=== PATIENT | female | born 1995 | race Caucasian/White ===

== ENCOUNTER 2016-04-16 03:41 | Emergency (ER) | payer SELFPAY ==
[2016-04-16] MEDS ORDERED: ONDANSETRON HCL INJ/PF 4 MG/2 ML SDV IV ONE (04:48)
[2016-04-16] MEDS ORDERED: NORMAL SALINE 1000 ML 1,000 ML IV ONE (04:48)
--- NOTE | 2016-04-16 04:52 | ER Document Report ---
ED GI/ - General Chief Complaint: Nausea/Vomiting/Diarrhea Stated Complaint: CHEST PAIN Time seen by provider: 04:40 Notes: Patient is a 21-year-old female that comes emergency department for chief complaint of vomiting and diarrhea since yesterday, she has vomited 6 times today and had 3 episodes of diarrhea, she denies blood in either. Patient states that she has pain in the pelvis or abdomen that is sharp. Patient does have suspected sick contacts with her significant other and his family members. Patient also states that for several days she has had pain with urination. Patient denies any raw food or recent antibiotics. Patient denies any daily medications, past medical history of anxiety. Patient denies any surgeries. TRAVEL OUTSIDE OF THE [place] IN LAST 30 DAYS: No - Related Data Allergies/Adverse Reactions: lorazepam [From Ativan] Allergy (Verified 07/17/14 11:47) Past Medical History - General Information source: Patient - Social History Smoking Status: Current Every Day Smoker Chew tobacco use (# tins/day): No Frequency of alcohol use: None Drug Abuse: Marijuana Lives with: Family Family History: Reviewed & Not Pertinent Patient has suicidal ideation: No Patient has homicidal ideation: No Renal/ Medical History: Denies: Hx Peritoneal Dialysis Psychiatric Medical History: Reports: Hx Anxiety Surgical Hx: Negative - Immunizations Hx Diphtheria, Pertussis, Tetanus Vaccination: Yes Review of Systems - Review of Systems Constitutional: No symptoms reported EENT: No symptoms reported Cardiovascular: No symptoms reported Respiratory: No symptoms reported Gastrointestinal: See HPI Genitourinary: No symptoms reported Female Genitourinary: No symptoms reported Musculoskeletal: No symptoms reported Skin: No symptoms reported Hematologic/Lymphatic: No symptoms reported Neurological/Psychological: No symptoms reported Physical Exam - Vital signs Vitals: Temp Pulse Resp BP Pulse Ox 98.1 F 88 16 129/81 H 98 04/16/16 03:57 04/16/16 03:57 04/16/16 03:57 04/16/16 03:57 04/16/16 03:57 Interpretation: Normal - General General appearance: Appears well, Alert In distress: None - HEENT Head: Normocephalic, Atraumatic Eyes: Normal Conjunctiva: Normal Extraocular movements intact: Yes Eyelashes: Normal Pupils: PERRL Mouth/Lips: Normal Mucous membranes: Dry Pharynx: Normal Neck: Normal - Respiratory Respiratory status: No respiratory distress Chest status: Nontender Breath sounds: Normal Chest palpation: Normal - Cardiovascular Rhythm: Regular Heart sounds: Normal auscultation Murmur: No - Abdominal Inspection: Normal Distension: No distension Bowel sounds: Normal Tenderness: Tender - Mild left upper quadrant tenderness, otherwise unremarkable abdomen Organomegaly: No organomegaly - Back Back: Normal, Nontender - Extremities General upper extremity: Normal inspection, Nontender, Normal color, Normal ROM , Normal temperature General lower extremity: Normal inspection, Nontender, Normal color, Normal ROM , Normal temperature, Normal weight bearing. No: Padilla's sign - Neurological Neuro grossly intact: Yes Cognition: Normal Orientation: AAOx4 Shirlene Coma Scale Eye Opening: Spontaneous Acworth Coma Scale Verbal: Oriented Shirlene Coma Scale Motor: Obeys Commands Acworth Coma Scale Total: 15 Speech: Normal Motor strength normal: LUE, RUE, LLE, RLE Sensory: Normal - Psychological Associated symptoms: Normal affect, Normal mood - Skin Skin Temperature: Warm Skin Moisture: Dry Skin Color: Normal Course - Re-evaluation Re-evalutation: Shows very mild leukocytosis, chemistry shows slightly low bicarbonate, urine shows ketones, clinical picture is consistent with vomiting and dehydration. Mild left upper quadrant tenderness on exam, after Zofran patient denying any symptoms, patient drink fluids without any difficulty, patient has multiple sick contacts, suspect patient has a viral syndrome. Discussed treatment, follow-up, return precautions. Patient states understanding and agreement. - Vital Signs Vital signs: Temp Pulse Resp BP Pulse Ox 99.0 F 98 16 125/65 100 04/16/16 06:53 04/16/16 06:53 04/16/16 06:53 04/16/16 06:53 04/16/16 06:53 - Laboratory Result Diagrams: 04/16/16 04:57 04/16/16 04:57 Laboratory results interpreted by me: 04/16/16 04/16/16 04/16/16 04:57 04:57 05:00 WBC 12.1 H Seg Neutrophils % 80.9 H Lymphocytes % 10.8 L Absolute Neutrophils 9.8 H Carbon Dioxide 19 L Total Protein 8.4 H Urine Ketones 80 H Urine Blood SMALL H Discharge - Discharge Clinical Impression: Nausea vomiting and diarrhea Condition: Stable Disposition: HOME, SELF-CARE Additional Instructions: Continue rehydration, take Phenergan or the Zofran for nausea. Benadryl can help with nausea as well. Take the Pepcid as directed to help settle your stomach. Start with plain foods, rest. Workup and examination is most consistent with a viral syndrome. Return to emergency department for any concerning or worsening symptoms. Prescriptions: Famotidine [Pepcid 20 mg Tablet] 20 mg PO DAILY #20 tablet Promethazine HCl [Phenergan 25 mg Tablet] 1 - 2 tab PO Q6H PRN #20 tablet PRN Reason: Forms: Return to Work
[2016-04-16 05:25] LABS: ABSOLUTE LYMPHOCYTES (AUTO) 1.3 10^3/uL (0.5-4.7); ABSOLUTE MONOCYTES (AUTO) 0.9 10^3/uL (0.1-1.4); ABSOLUTE NEUT (AUTO) 9.8 10^3/uL (1.7-8.2); BASOPHILS % (AUTO) 0.3 % (0-2); EOSINOPHILS % (AUTO) 0.2 % (0-6); HEMATOCRIT 43.6 % (36.0-47.0); HEMOGLOBIN 14.6 g/dL (12.0-15.5); HGB HCT DIFFERENCE 0.2; LYMPHOCYTES % (AUTO) 10.8 % (13-45); MEAN CORPUSCULAR HEMOGLOBIN 30.7 pg (27.0-33.4); MEAN CORPUSCULAR HGB CONC 33.5 g/dL (32.0-36.0); MEAN CORPUSCULAR VOLUME 92 fl (80-97); MONOCYTES % (AUTO) 7.8 % (3-13); RED BLOOD COUNT 4.75 10^6/uL (3.72-5.28); RED CELL DISTRIBUTION WIDTH 13.2 % (11.5-14.0); SEGMENTED NEUTROPHILS % (AUTO) 80.9 % (42-78); WHITE BLOOD COUNT 12.1 10^3/uL (4.0-10.5)
[2016-04-16 05:42] LABS: ALANINE AMINOTRANSFERASE 29 U/L (9-52); ALBUMIN 4.6 g/dL (3.5-5.0); ALKALINE PHOSPHATASE 68 U/L (38-126); ANION GAP 18 (5-19); ASPARTATE AMINO TRANSFERASE 22 U/L (14-36); BILIRUBIN,TOTAL 0.8 mg/dL (0.2-1.3); BLOOD UREA NITROGEN 11 mg/dL (7-20); CALCIUM 10.2 mg/dL (8.4-10.2); CARBON DIOXIDE 19 mmol/L (22-30); CHLORIDE 103 mmol/L (98-107); CREATININE RESULT 0.61 mg/dL (0.52-1.25); GLUCOSE 76 mg/dL (75-110); LIPASE 44.7 U/L (23-300); POTASSIUM 4.6 mmol/L (3.6-5.0); SODIUM 140.4 mmol/L (137-145); TOTAL PROTEIN 8.4 g/dL (6.3-8.2)
[2016-04-16 05:46] LABS: APPEARANCE,URINE CLEAR; BILIRUBIN,URINE NEGATIVE (NEGATIVE); GLUCOSE, URINE NEGATIVE (NEGATIVE); KETONES,URINE 80 mg/dL (NEGATIVE); LEUKOCYTE ESTERASE,URINE NEGATIVE (NEGATIVE); NITRITE,URINE NEGATIVE (NEGATIVE); PROTEIN,URINE NEGATIVE (NEGATIVE); URINE SPECIFIC GRAVITY 1.011; UROBILINOGEN,URINE NEGATIVE mg/dL (<2.0)
[2016-04-16] MEDS ORDERED: ONDANSETRON ODT 4 MG TAB (6 TAB/DSPK) PO PRN (06:08)
[2016-04-16 06:54] VITALS: BP 125/65
== END 2016-04-16 06:54 | disposition home or self-care (01) ==
LOC: ER 03:41
DX: R11.2 Nausea with vomiting, unspecified (principal); R19.7 Diarrhea, unspecified; F17.210 Nicotine dependence, cigarettes, uncomplicated
CPT/HCPCS: 99284; 96361; 96374; 36415; 83690; 85025; 81025; 80053; 81001; J2405; J7030

== ENCOUNTER 2016-07-05 10:52 | Emergency (ER) | payer SELFPAY ==
[2016-07-05] MEDS ORDERED: HYDROXYZINE PAMOATE 50 MG CAPSULE PO ONE (12:13)
--- NOTE | 2016-07-05 12:16 | ER Document Report ---
ED Medical Screen (RME) - General Chief Complaint: Anxiety Stated Complaint: HAND AND ARM NUMBNESS Notes: Patient says that she awakened this morning at 8 AM and was having chest pains. Soon, her arms and legs and face were tingling. Now, she has cramping of both hands and wrists. Says she has vomited about 8 times. Denies diarrhea. No recent cough or cold or chest congestion. No fevers. Patient says that she went to a [place] last night and was drinking alcohol, but doesn't feel that she became significantly intoxicated. LMP started 2 days ago. PMH: Panic attacks and anxiety. TRAVEL OUTSIDE OF THE [place] IN LAST 30 DAYS: No - Related Data Allergies/Adverse Reactions: lorazepam [From Ativan] Allergy (Verified 07/17/14 11:47) Past Medical History Renal/ Medical History: Denies: Hx Peritoneal Dialysis Psychiatric Medical History: Reports: Hx Anxiety - Immunizations Hx Diphtheria, Pertussis, Tetanus Vaccination: Yes Physical Exam - Vital signs Vitals: Temp Pulse Resp BP Pulse Ox 97.6 F 79 16 132/83 H 98 07/05/16 10:57 07/05/16 10:57 07/05/16 10:57 07/05/16 10:57 07/05/16 10:57 Course - Vital Signs Vital signs: Temp Pulse Resp BP Pulse Ox 97.6 F 79 16 132/83 H 98 07/05/16 10:57 07/05/16 10:57 07/05/16 10:57 07/05/16 10:57 07/05/16 10:57 Doctor's Discharge - Discharge Instructions: Anxiety ([facility])
[2016-07-05 12:39] LABS: ABSOLUTE BASOPHILS # (AUTO) 0.1 10^3/uL (0.0-0.2); ABSOLUTE LYMPHOCYTES (AUTO) 1.1 10^3/uL (0.5-4.7); ABSOLUTE MONOCYTES (AUTO) 0.7 10^3/uL (0.1-1.4); BASOPHILS % (AUTO) 0.4 % (0-2); EOSINOPHILS % (AUTO) 0.1 % (0-6); HEMATOCRIT 43.8 % (36.0-47.0); HEMOGLOBIN 14.7 g/dL (12.0-15.5); HGB HCT DIFFERENCE 0.3; LYMPHOCYTES % (AUTO) 7.7 % (13-45); MEAN CORPUSCULAR HEMOGLOBIN 30.7 pg (27.0-33.4); MEAN CORPUSCULAR HGB CONC 33.5 g/dL (32.0-36.0); MEAN CORPUSCULAR VOLUME 92 fl (80-97); MONOCYTES % (AUTO) 4.9 % (3-13); RED BLOOD COUNT 4.78 10^6/uL (3.72-5.28); RED CELL DISTRIBUTION WIDTH 13.1 % (11.5-14.0); SEGMENTED NEUTROPHILS % (AUTO) 86.9 % (42-78); WHITE BLOOD COUNT 13.8 10^3/uL (4.0-10.5)
[2016-07-05 12:49] LABS: AMORPHOUS SEDIMENT,URINE TRACE /HPF; APPEARANCE,URINE TURBID; BILIRUBIN,URINE NEGATIVE (NEGATIVE); GLUCOSE, URINE NEGATIVE (NEGATIVE); KETONES,URINE NEGATIVE (NEGATIVE); LEUKOCYTE ESTERASE,URINE NEGATIVE (NEGATIVE); NITRITE,URINE NEGATIVE (NEGATIVE); PROTEIN,URINE 30 mg/dL (NEGATIVE); URINE SPECIFIC GRAVITY 1.025; UROBILINOGEN,URINE NEGATIVE mg/dL (<2.0)
[2016-07-05 12:56] LABS: ALANINE AMINOTRANSFERASE 21 U/L (9-52); ALBUMIN 5.1 g/dL (3.5-5.0); ALKALINE PHOSPHATASE 61 U/L (38-126); ANION GAP 18 (5-19); ASPARTATE AMINO TRANSFERASE 19 U/L (14-36); BILIRUBIN,DIRECT 0.3 mg/dL (0.0-0.4); BILIRUBIN,TOTAL 0.6 mg/dL (0.2-1.3); BLOOD UREA NITROGEN 11 mg/dL (7-20); CALCIUM 10.2 mg/dL (8.4-10.2); CARBON DIOXIDE 23 mmol/L (22-30); CHLORIDE 107 mmol/L (98-107); CREATININE RESULT 0.66 mg/dL (0.52-1.25); GLUCOSE 111 mg/dL (75-110); LIPASE 60.5 U/L (23-300); POTASSIUM 4.2 mmol/L (3.6-5.0); SODIUM 148.2 mmol/L (137-145); TOTAL PROTEIN 8.6 g/dL (6.3-8.2)
--- NOTE | 2016-07-05 13:32 | ER Document Report ---
ED General - General Chief Complaint: Anxiety Stated Complaint: HAND AND ARM NUMBNESS Mode of Arrival: Ambulatory Information source: Patient Notes: Patient presents emergency department with complaints of chest pain hand cramps hard debris and panic attack. Patient reports that she went to a [place] last night and drank for apple [employer]. Patient reports she woke up this morning with these symptoms. She reports history of anxiety. She reports that since she's been here she's vomited at least 5 more times. She reports she's had diarrhea once. She reports middle of her chest hurts. TRAVEL OUTSIDE OF THE [place] IN LAST 30 DAYS: No - HPI Onset: Just prior to arrival Onset/Duration: Sudden Severity: Severe Pain Level: 5 Associated symptoms: Diarrhea, Nausea, Vomiting Exacerbated by: Denies Relieved by: Denies Similar symptoms previously: Yes Recently seen / treated by doctor: No - Related Data Allergies/Adverse Reactions: lorazepam [From Ativan] Allergy (Verified 07/17/14 11:47) Past Medical History - General Information source: Patient Last Menstrual Period: current - Social History Smoking Status: Current Every Day Smoker Cigarette use (# per day): Yes Frequency of alcohol use: Occasional Drug Abuse: Marijuana Occupation: none Lives with: Family Family History: Reviewed & Not Pertinent Patient has suicidal ideation: No Patient has homicidal ideation: No Renal/ Medical History: Denies: Hx Peritoneal Dialysis Psychiatric Medical History: Reports: Hx Anxiety, Other - panic attacks Surgical Hx: Negative - Immunizations Hx Diphtheria, Pertussis, Tetanus Vaccination: Yes Review of Systems - Review of Systems Notes: Review HPI for review of systems., All other systems negative Physical Exam - Vital signs Vitals: Temp Pulse Resp BP Pulse Ox 97.6 F 79 16 132/83 H 98 07/05/16 10:57 07/05/16 10:57 07/05/16 10:57 07/05/16 10:57 07/05/16 10:57 - Notes Notes: PHYSICAL EXAMINATION: GENERAL: Well-appearing and in no acute distress nontoxic looking, laughs at her easily HEAD: Atraumatic, normocephalic. EYES: Pupils equal round extraocular movements intact, sclera anicteric, conjunctiva are normal. ENT: nares patent, oropharynx clear without exudates. Moist mucous membranes. NECK: Normal range of motion, supple without lymphadenopathy LUNGS: CTAB and equal. No wheezes rales or rhonchi. HEART: Regular rate and rhythm without murmurs ABDOMEN: Soft, no tenderness. No guarding, no rebound BACK: No c/o pain with palpation EXTREMITIES: Normal range of motion, no pitting edema. No cyanosis. Reports shoulders achy NEUROLOGICAL: Cranial nerves grossly intact. Normal sensory/motor exams. PSYCH: Normal mood, normal affect. SKIN: Warm, Dry, normal turgor, no rashes or lesions noted Course - Re-evaluation Re-evalutation: 07/05/16 15:33 Called into patients room, she vomited again. She has not received her medication. I contacted another nurse and requested she give medication 07/05/16 16:29 Labs unremarkable Patient received IV fluids reports she feels much better. - Vital Signs Vital signs: Temp Pulse Resp BP Pulse Ox 98.6 F 81 16 132/89 H 98 07/05/16 16:54 07/05/16 16:54 07/05/16 16:54 07/05/16 16:54 07/05/16 16:54 - Laboratory Result Diagrams: 07/05/16 12:20 07/05/16 12:20 Laboratory results interpreted by me: 07/05/16 07/05/16 07/05/16 12:20 12:20 12:20 WBC 13.8 H Seg Neutrophils % 86.9 H Lymphocytes % 7.7 L Absolute Neutrophils 12.0 H Sodium 148.2 H Glucose 111 H Total Protein 8.6 H Albumin 5.1 H Urine Protein 30 H Urine Blood MODERATE H - EKG Interpretation by Id EKG shows normal: Sinus rhythm Discharge - Discharge Clinical Impression: Nausea & vomiting, History of panic attacks, Elevated blood pressure reading Condition: Stable Disposition: HOME, SELF-CARE Instructions: Antinausea Medication ([facility]), Anxiety ([facility]), Vomiting ([facility]), Intravenous (IV) Fluids ([facility]) Additional Instructions: *You have been evaluated for nausea/vomiting, history of panic attacks *Take medication as prescribed for nausea *Over the counter anti-diarrheal as indicated *Ensure adequate fluid intake as discussed to prevent dehydration *Follow up with a primary care provider within one week *Return to ED for worsening condition, changes, needs Monitor your blood pressure. Your blood pressure was elevated today. This may be because you were anxious, in pain or because you need medication. It is important to follow up with your primary care provider for full evaluation. Forms: Return to Work, Elevated Blood Pressure
[2016-07-05] MEDS ORDERED: ONDANSETRON 4 MG TAB.RAPDIS PO ONE (14:27)
[2016-07-05] MEDS ORDERED: DIPHENHYDRAMINE HCL 25 MG CAPSULE PO ONE (14:27)
[2016-07-05] MEDS ORDERED: RINGERS SOLUTION,LACTATED 1,000 ML IV ONE (15:34)
[2016-07-05 16:24] LABS: URINE BARBITURATES SCREEN NEGATIVE; URINE METHADONE SCREEN NEGATIVE; URINE OPIATES LOW NEGATIVE; URINE PHENCYCLIDINE SCREEN NEGATIVE
[2016-07-05] MEDS ORDERED: ONDANSETRON ODT 4 MG TAB (6 TAB/DSPK) PO PRN (16:29)
[2016-07-05 17:41] VITALS: BP 132/89
--- NOTE | 2016-07-06 16:55 | EKG REPORT ---
SEVERITY:- NORMAL ECG - SINUS RHYTHM : Confirmed by: Maryann Torres MD 06-Jul-2016 16:54:14
== END 2016-07-05 16:55 | disposition home or self-care (01) ==
LOC: ER 10:52
DX: R07.9 Chest pain, unspecified (principal); R03.0 Elevated blood-pressure reading, without diagnosis of hypertension; R11.2 Nausea with vomiting, unspecified; F41.9 Anxiety disorder, unspecified; F17.210 Nicotine dependence, cigarettes, uncomplicated
CPT/HCPCS: 93005; 99284; 96360; 36415; 83690; 84703; 85025; 80053; 81001; 80307; 93010; S0119; J7120

== ENCOUNTER 2016-09-27 07:15 | Emergency (ER) | payer SELFPAY ==
[2016-09-27] MEDS ORDERED: DIPHENHYDRAMINE HCL 50 MG/ML VIAL IM ONE (07:55)
[2016-09-27] MEDS ORDERED: MAG HYDROX/AL HYDROX/SIMETH SUSP 30 ML UDCUP PO ONE (07:56)
[2016-09-27] MEDS ORDERED: LIDOCAINE 2% VISCOUS SOLN 20 ML UDCUP PO ONE (07:56)
--- NOTE | 2016-09-27 08:53 | ER Document Report ---
ED General - General Mode of Arrival: Medic Information source: Patient TRAVEL OUTSIDE OF THE [place] IN LAST 30 DAYS: No - HPI Onset: This morning - Refer to HPI notes Similar symptoms previously: Yes Recently seen / treated by doctor: No <ADELITA BACA - Last Filed: 09/27/16 09:01> <SHONA MARX - Last Filed: 09/27/16 13:15> - General Chief Complaint: Anxiety Stated Complaint: ANXIETY Time Seen by Provider: 09/27/16 07:32 Notes: Patient is a 21-year-old female presented emergency department via EMS anxiety. Patient became anxious around 130 this morning and took 4 shots of alcohol. Patient states around 10:00 this morning she laid down to try to go to sleep. Patient states that this time she became very anxious and felt like the room is spinning and she has vomited at home and currently in the emergency department patient also complains of some tingling in her hands and face. Patient's last menstrual period was 09/03/2016. Patient smokes marijuana daily. Patient has not eaten any food before she took 4 shots of alcohol; Patient states she took all of this alcohol the same time. (ADELITA BACA) - Related Data Allergies/Adverse Reactions: lorazepam [From Ativan] Allergy (Verified 07/17/14 11:47) Past Medical History - General Information source: Patient - Social History Smoking Status: Current Every Day Smoker Chew tobacco use (# tins/day): No Frequency of alcohol use: Social Drug Abuse: Marijuana Family History: None Patient has suicidal ideation: No Patient has homicidal ideation: No Psychiatric Medical History: Reports: Hx Anxiety, Hx Depression Surgical Hx: Negative - Immunizations Hx Diphtheria, Pertussis, Tetanus Vaccination: Yes <ADELITA BACA - Last Filed: 09/27/16 09:01> Review of Systems - Review of Systems Constitutional: No symptoms reported EENT: No symptoms reported Cardiovascular: No symptoms reported Respiratory: No symptoms reported Gastrointestinal: See HPI, Abdominal pain, Nausea, Vomiting Genitourinary: No symptoms reported Female Genitourinary: Last menstrual period - 09/03/2016 Musculoskeletal: No symptoms reported Skin: No symptoms reported Hematologic/Lymphatic: No symptoms reported Neurological/Psychological: See HPI, Anxiety -: Yes All other systems reviewed and negative <ADELITA BACA - Last Filed: 09/27/16 09:01> Physical Exam - Vital signs Interpretation: Normal <ADELITA BACA - Last Filed: 09/27/16 09:01> <SHONA MARX - Last Filed: 09/27/16 13:15> - Vital signs Vitals: Temp Pulse Resp BP Pulse Ox 98.5 F 78 18 109/63 97 09/27/16 07:33 09/27/16 07:33 09/27/16 07:33 09/27/16 07:33 09/27/16 07:33 - Notes Notes: GENERAL: Alert, patient is sitting on the bed holding a emesis bag and spitting is not, mild distress. HEAD: Normocephalic, atraumatic. EYES: Appear normal. Pupils equal, round, and reactive to light. ENT: Moist mucus membranes, tongue midline. NECK: Full range of motion. Supple. Trachea midline. LUNGS: Clear to auscultation bilaterally, no wheezes, rales, or rhonchi. No respiratory distress. HEART: Regular rate and rhythm. No murmurs, gallops, or rubs. ABDOMEN: Soft, non-tender. Non-distended. Normal bowel sounds. EXTREMITIES: Moves all 4 extremities spontaneously. Normal strength. No edema. NEUROLOGICAL: Alert and oriented x3. Normal speech. No focal neurological deficits. GSC 15. PSYCH: Normal affect, anxious. SKIN: Warm, dry, normal turgor. No rashes or lesions noted. (ADELITA BACA) Course <NEEMA BACAINE - Last Filed: 09/27/16 09:01> - Laboratory Result Diagrams: 09/27/16 09:15 <SHONA MARX - Last Filed: 09/27/16 13:15> - Re-evaluation Re-evalutation: 09/27/16 13:14 The patient is feeling much better at this time. She sitting up and smiling. She states she does feel well and would like to go home. (SHONA MARX) - Vital Signs Vital signs: Temp Pulse Resp BP Pulse Ox 98.0 F 105 H 16 115/63 99 09/27/16 11:44 09/27/16 11:44 09/27/16 11:44 09/27/16 11:44 09/27/16 11:44 - Laboratory Laboratory results interpreted by me: 09/27/16 09:15 WBC 13.9 H Seg Neutrophils % 84.1 H Lymphocytes % 11.0 L Absolute Neutrophils 11.7 H Discharge <ADELITA BACA - Last Filed: 09/27/16 09:01> <SHONA MARX - Last Filed: 09/27/16 13:15> - Discharge Clinical Impression: Anxiety Nausea and vomiting Qualifiers: Vomiting type: unspecified Vomiting Intractability: non-intractable Qualified Code(s): R11.2 - Nausea with vomiting, unspecified Condition: Stable Disposition: HOME, SELF-CARE Instructions: Anxiety ([facility]) Additional Instructions: Gastritis You have an inflammation of the stomach called gastritis. This commonly causes upper abdominal pain, nausea, and vomiting. In severe cases, bleeding of the stomach lining can occur. Gastritis can be caused by bacteria or viruses , alcohol, or stomach-irritating drugs. Begin with sips of clear liquids. Take increasing amounts of fluid over the first 24 hours. Then start small amounts of bland foods (such as dry toast , applesauce, mashed potato). Gradually resume your usual diet. You should take antacids every two hours until the pain has subsided. Acid -suppressing drugs may be prescribed as well. Avoid aspirin, caffeine, tobacco , and alcohol. If the abdominal pain worsens, or there is evidence of major bleeding in the stomach (such as black, tarry stool, bloody or black vomit, or lightheadedness), you should return immediately. Call the doctor if you aren't improved in 24 to 36 hours. RETURN TO THE EMERGENCY ROOM IF ANY NEW OR WORSENING SYMPTOMS. Scribe Attestation: 09/27/16 13:14 I personally performed the services described in the documentation, reviewed and edited the documentation which was dictated to the scribe in my presence, and it accurately records my words and actions. (SHONA MARX) Scribe Documentation - Scribe Written by Roberto:: Roberto Guadarrama, 09/27/2016 9:00 acting as scribe for :: Jhonathan <ADELITA BACA - Last Filed: 09/27/16 09:01>
[2016-09-27 09:42] LABS: ABSOLUTE BASOPHILS # (AUTO) 0.1 10^3/uL (0.0-0.2); ABSOLUTE LYMPHOCYTES (AUTO) 1.5 10^3/uL (0.5-4.7); ABSOLUTE MONOCYTES (AUTO) 0.6 10^3/uL (0.1-1.4); ABSOLUTE NEUT (AUTO) 11.7 10^3/uL (1.7-8.2); BASOPHILS % (AUTO) 0.5 % (0-2); HEMATOCRIT 43.6 % (36.0-47.0); HEMOGLOBIN 14.6 g/dL (12.0-15.5); HGB HCT DIFFERENCE 0.2; MEAN CORPUSCULAR HEMOGLOBIN 30.2 pg (27.0-33.4); MEAN CORPUSCULAR HGB CONC 33.5 g/dL (32.0-36.0); MEAN CORPUSCULAR VOLUME 90 fl (80-97); MONOCYTES % (AUTO) 4.4 % (3-13); RED BLOOD COUNT 4.85 10^6/uL (3.72-5.28); RED CELL DISTRIBUTION WIDTH 12.6 % (11.5-14.0); SEGMENTED NEUTROPHILS % (AUTO) 84.1 % (42-78); WHITE BLOOD COUNT 13.9 10^3/uL (4.0-10.5)
[2016-09-27] MEDS ORDERED: ONDANSETRON 4 MG TAB.RAPDIS PO ONE (10:55)
[2016-09-27 13:55] VITALS: BP 124/76
== END 2016-09-27 13:40 | disposition home or self-care (01) ==
LOC: ER 07:15
DX: F41.9 Anxiety disorder, unspecified (principal); R11.2 Nausea with vomiting, unspecified; R10.9 Unspecified abdominal pain; R20.2 Paresthesia of skin; F17.200 Nicotine dependence, unspecified, uncomplicated; Z88.8 Allergy status to other drugs, medicaments and biological substances
CPT/HCPCS: 99284; 96374; 36415; 80307; 84703; 85025; J1200; S0119; J3490

== ENCOUNTER 2017-01-04 12:09 | Emergency (ER) | payer SELFPAY ==
[2017-01-04] MEDS ORDERED: ONDANSETRON 4 MG TAB.RAPDIS PO ONE (12:18)
--- NOTE | 2017-01-04 12:19 | ER Document Report ---
ED Medical Screen (RME) - General Chief Complaint: Abdominal Pain Stated Complaint: HANDS/FEET/FACE NUMBNESS Time Seen by Provider: 01/04/17 12:15 Notes: This 21-year-old female patient reports waking up this morning with a burning sensation and cold sensation in her lower abdomen. The pain is primarily in the right lower quadrant. She did have nausea and vomiting. This caused her to feel anxious and developed a panic attack. Brief exam shows the abdomen is most tender in the right lower quadrant with some guarding. I have greeted and performed a rapid initial assessment of this patient. A comprehensive ED assessment and evaluation of the patient, analysis of test results and completion of the medical decision making process will be conducted by additional ED providers. TRAVEL OUTSIDE OF THE [place] IN LAST 30 DAYS: No - Related Data Allergies/Adverse Reactions: lorazepam [From Ativan] Allergy (Verified 01/04/17 12:12) Past Medical History Renal/ Medical History: Denies: Hx Peritoneal Dialysis Psychiatric Medical History: Reports: Hx Anxiety, Hx Depression - Immunizations Hx Diphtheria, Pertussis, Tetanus Vaccination: Yes Physical Exam - Vital signs Vitals: Temp Pulse Resp BP Pulse Ox 97.9 F 82 18 119/83 96 01/04/17 12:13 01/04/17 12:13 01/04/17 12:13 01/04/17 12:13 01/04/17 12:13 Course - Vital Signs Vital signs: Temp Pulse Resp BP Pulse Ox 97.9 F 82 18 119/83 96 01/04/17 12:13 01/04/17 12:13 01/04/17 12:13 01/04/17 12:13 01/04/17 12:13
[2017-01-04 12:53] LABS: ABSOLUTE EOSINOPHILS # (AUTO) 0.1 10^3/uL (0.0-0.6); ABSOLUTE LYMPHOCYTES (AUTO) 1.8 10^3/uL (0.5-4.7); ABSOLUTE MONOCYTES (AUTO) 0.7 10^3/uL (0.1-1.4); ABSOLUTE NEUT (AUTO) 7.5 10^3/uL (1.7-8.2); BASOPHILS % (AUTO) 0.5 % (0-2); EOSINOPHILS % (AUTO) 0.8 % (0-6); HEMATOCRIT 44.3 % (36.0-47.0); HEMOGLOBIN 15.2 g/dL (12.0-15.5); HGB HCT DIFFERENCE 1.3; LYMPHOCYTES % (AUTO) 17.9 % (13-45); MEAN CORPUSCULAR HEMOGLOBIN 31.6 pg (27.0-33.4); MEAN CORPUSCULAR HGB CONC 34.2 g/dL (32.0-36.0); MEAN CORPUSCULAR VOLUME 92 fl (80-97); MONOCYTES % (AUTO) 7.2 % (3-13); RED CELL DISTRIBUTION WIDTH 13.4 % (11.5-14.0); SEGMENTED NEUTROPHILS % (AUTO) 73.6 % (42-78); WHITE BLOOD COUNT 10.2 10^3/uL (4.0-10.5)
[2017-01-04 12:54] LABS: APPEARANCE,URINE CLOUDY; BILIRUBIN,URINE NEGATIVE (NEGATIVE); GLUCOSE, URINE NEGATIVE (NEGATIVE); KETONES,URINE TRACE mg/dL (NEGATIVE); LEUKOCYTE ESTERASE,URINE NEGATIVE (NEGATIVE); NITRITE,URINE NEGATIVE (NEGATIVE); PROTEIN,URINE NEGATIVE (NEGATIVE); URINE SPECIFIC GRAVITY 1.008
[2017-01-04 13:09] LABS: ALANINE AMINOTRANSFERASE 26 U/L (9-52); ALBUMIN 4.8 g/dL (3.5-5.0); ALKALINE PHOSPHATASE 60 U/L (38-126); ANION GAP 17 (5-19); ASPARTATE AMINO TRANSFERASE 19 U/L (14-36); BILIRUBIN,DIRECT 0.2 mg/dL (0.0-0.4); BILIRUBIN,TOTAL 0.3 mg/dL (0.2-1.3); BLOOD UREA NITROGEN 8 mg/dL (7-20); CALCIUM 9.9 mg/dL (8.4-10.2); CARBON DIOXIDE 25 mmol/L (22-30); CHLORIDE 103 mmol/L (98-107); CREATININE RESULT 0.67 mg/dL (0.52-1.25); GLUCOSE 102 mg/dL (75-110); SODIUM 145.1 mmol/L (137-145); TOTAL PROTEIN 7.9 g/dL (6.3-8.2)
[2017-01-04 13:11] LABS: POTASSIUM 3.8 mmol/L (3.6-5.0)
[2017-01-04] MEDS ORDERED: ONDANSETRON HCL INJ/PF 4 MG/2 ML SDV IV ONE (13:25)
[2017-01-04] MEDS ORDERED: LIDOCAINE 2% VISCOUS SOLN 20 ML UDCUP PO ONE (13:35)
[2017-01-04] MEDS ORDERED: MAG HYDROX/AL HYDROX/SIMETH SUSP 30 ML UDCUP PO ONE (13:35)
[2017-01-04] MEDS ORDERED: METOCLOPRAMIDE HCL ORAL SOLN 10 MG/10 ML UDCUP PO ONE (13:35)
--- NOTE | 2017-01-04 13:49 | ER Document Report ---
ED GI/ - General Chief Complaint: Abdominal Pain Stated Complaint: HANDS/FEET/FACE NUMBNESS Time Seen by Provider: 01/04/17 12:15 Information source: Patient Notes: Patient is a 21-year-old female who presents today with "a hot and cold feeling " in her abdomen. She states it is bilateral lower quadrants. She states to me it is left greater than right. She stated in triage that was right greater than left. She denies any diarrhea, dysuria, or fevers. Patient states she recently had an appointment with the health department and had all STD checks and was given a prescription of Flagyl which he completed last week. She denies any vaginal discharge. She states she is and monogamous. Patient also states when she vomited she felt tingling to bilateral hands and feet. She denies any tingling at this time. TRAVEL OUTSIDE OF THE [place] IN LAST 30 DAYS: No - HPI Patient complains to provider of: Other - See above Onset: This morning Timing/Duration: Sudden Quality of pain: Achy Severity at maximum: Mild Severity in ED: Mild Pain Level: 1 Location: Other - See above Vaginal bleeding (Compared to normal period): None Sexual history: Active Associated symptoms: Other - See above Exacerbated by: Denies Relieved by: Denies Similar symptoms previously: No Recently seen / treated by doctor: No - Related Data Allergies/Adverse Reactions: lorazepam [From Ativan] Allergy (Verified 01/04/17 12:12) Past Medical History - General Information source: Patient - Social History Smoking Status: Current Every Day Smoker Cigarette use (# per day): No Chew tobacco use (# tins/day): No Smoking Education Provided: No Frequency of alcohol use: None Drug Abuse: None Family History: None Renal/ Medical History: Denies: Hx Peritoneal Dialysis Psychiatric Medical History: Reports: Hx Anxiety, Hx Depression Surgical Hx: Negative - Immunizations Hx Diphtheria, Pertussis, Tetanus Vaccination: Yes Review of Systems - Review of Systems Constitutional: denies: Fever EENT: denies: Eye discharge, Nose discharge Cardiovascular: denies: Chest pain, Palpitations Respiratory: denies: Short of breath Gastrointestinal: denies: Vomiting Genitourinary: denies: Dysuria, Discharge Musculoskeletal: denies: Leg swelling Skin: Other - no hives. denies: Rash Neurological/Psychological: Other - no slurred speech -: Yes All other systems reviewed and negative Physical Exam - Vital signs Vitals: Temp Pulse Resp BP Pulse Ox 97.9 F 82 18 119/83 96 01/04/17 12:13 01/04/17 12:13 01/04/17 12:13 01/04/17 12:13 01/04/17 12:13 Notes: Reviewed vital signs and nursing note as charted by RN. CONSTITUTIONAL: Alert and oriented and responds appropriately to questions. Well -appearing; well-nourished HEAD: Normocephalic; atraumatic EYES: Sclerae non-icteric ENT: Moist mucous membranes; pharynx without lesions noted NECK: Supple without meningismus; non-tender; no cervical lymphadenopathy, no masses CARD: Regular rate and rhythm; no murmurs RESP: Normal chest excursion without splinting or tachypnea; breath sounds clear and equal bilaterally ABD/GI: Normal bowel sounds; non-distended; soft, very mildly tender to bilateral lower quadrants, left greater than right. No rebound or guarding on my examination BACK: The back appears normal and is non-tender to palpation, there is no CVA tenderness EXT: Normal ROM in all joints; non-tender to palpation; no cyanosis, no effusions, no edema SKIN: Normal color for age and race; warm; dry; good turgor; capillary refill < 2 seconds; no acute lesions noted NEURO: Moves all extremities equally; Motor and sensory function intact PSYCH: The patient's mood and manner are appropriate. Grooming and personal hygiene are appropriate. Course - Re-evaluation Re-evalutation: 01/04/17 13:48 Given the above history and physical examination I will order basic labs, urinalysis, test, abdominal labs, and perform a CT scan of the abdomen and pelvis. Given the recent pelvic examination with STD testing with a monogamous partner in marriage, I do not believe pelvic examination needs to be repeated at this time. 01/04/17 13:[address] scan of the abdomen and pelvis has been ordered. 01/04/17 14:51 CT scan of the abdomen and pelvis as recorded. Patient has not vomited here. Patient has no tenderness on repeat examination. Patient will be discharged home at this time with strict return precautions and follow-up as needed with the outpatient provider. I will provide an HVAC R TECH for patient convenience. - Vital Signs Vital signs: Temp Pulse Resp BP Pulse Ox 97.9 F 82 18 119/83 96 01/04/17 12:13 01/04/17 12:13 01/04/17 12:13 01/04/17 12:13 01/04/17 12:13 - Laboratory Result Diagrams: 01/04/17 12:30 01/04/17 12:30 Laboratory results interpreted by me: 01/04/17 01/04/17 12:30 12:30 Sodium 145.1 H Urine Ketones TRACE H Urine Urobilinogen 2.0 H Discharge - Discharge Clinical Impression: Vomiting Qualifiers: Vomiting type: unspecified Vomiting Intractability: unspecified Nausea presence : with nausea Qualified Code(s): R11.2 - Nausea with vomiting, unspecified Abdominal pain Qualifiers: Abdominal location: lower abdomen, unspecified Qualified Code(s): R10.30 - Lower abdominal pain, unspecified Condition: Good Disposition: HOME, SELF-CARE Additional Instructions: Come back immediately for any return of pain, persistent vomiting, numbness or tingling, or any other acute problems. Please follow-up with the health department or the HVAC R TECH I have provided. Prescriptions: Ondansetron [Zofran Odt 4 mg Tablet] 1 tab PO Q6H #15 tab.renea Referrals: DELFINO DAILY MD [ACTIVE STAFF] - Follow up as needed
--- NOTE | 2017-01-04 14:32 | RADIOLOGY REPORT (SQ) ---
EXAM DESCRIPTION: CT ABD/PELVIS WITH IV ONLY COMPLETED DATE/TIME: 01/04/2017 2:18 pm REASON FOR STUDY: 13, bilateral lower abodminal pain with vomiting COMPARISON: CT abdomen pelvis 02/28/2015 TECHNIQUE: CT scan of the abdomen and pelvis performed using helical scanning technique with dynamic intravenous contrast injection. No oral contrast. Images reviewed with lung, soft tissue, and bone windows. Reconstructed coronal and sagittal MPR images reviewed. Delayed images for evaluation of the urinary system also acquired. All images stored on PACS. All CT scanners at this facility use dose modulation, iterative reconstruction, and/or weight based d osing when appropriate to reduce radiation dose to as low as reasonably achievable (ALARA). [facility]: Dose Right [facility]: CareDose [facility]: Dose Right [facility]: Teradose 4D [facility]: Pathagility CONTRAST TYPE AND DOSE: contrast/concentration: Isovue 370.00 mg/ml; Total Contrast Delivered: 61.0 ml; Total Saline Delivered: 65.0 ml RENAL FUNCTION: Creatinine 0.67 RADIATION DOSE: Up-to-date CT equipment and radiation dose reduction techniques were employed. CTDIv ol: 5.2 - 6.4 mGy. DLP: 575 mGy-cm.. LIMITATIONS: None. FINDINGS: LOWER CHEST: No significant findings. No nodules or infiltrates. LIVER: Normal size. No masses. No dilated ducts. SPLEEN: Normal size. No focal lesions. PANCREAS: No masses. No significant calcifications. No adjacent inflammation or peripancreatic fluid collections. Pancreatic duct not dilated. GALLBLADDER: No identified stones by CT criteria. No inflammatory changes to suggest cholecystitis. ADRENAL GLANDS: No significant masses or asymmetry. RIGHT KIDNEY AND URETER: No solid masses. No significant calcifications. No hydronephrosis or hyd roureter. LEFT KIDNEY AND URETER: No solid masses. No significant calcifications. No hydronephrosis or hydr oureter. AORTA AND VESSELS: No aneurysm. No dissection. Renal arteries, SMA, celiac without stenosis. RETROPERITONEUM: No retroperitoneal adenopathy, hemorrhage or masses. BOWEL AND PERITONEAL CAVITY: No masses or inflammatory changes. No free fluid or peritoneal masses. APPENDIX: Normal. PELVIS: No mass. No free fluid. Normal bladder. ABDOMINAL WALL: No masses. No hernias. BONES: No significant or acute findings. OTHER: No other significant finding. IMPRESSION: NO SIGNIFICANT OR ACUTE FINDING IN THE ABDOMEN OR PELVIS ON CT SCAN WITH IV CONTRAST. TECHNICAL DOCUMENTATION: JOB ID: [id number] Quality ID # [id number]: Final reports with documentation of one or more dose reduction techniques (e.g., Au tomated exposure control, adjustment of the mA and/or kV according to patient size, use of iterative reconstruction technique) 2010 [employer]- All Rights Reserved
[2017-01-04 15:45] VITALS: BP 114/75
== END 2017-01-04 15:28 | disposition home or self-care (01) ==
LOC: ER 12:09
DX: R10.30 Lower abdominal pain, unspecified (principal); R11.2 Nausea with vomiting, unspecified; F17.200 Nicotine dependence, unspecified, uncomplicated; Z88.8 Allergy status to other drugs, medicaments and biological substances
CPT/HCPCS: 99284; 96374; 36415; 84703; 85025; 80053; 81001; 74177; S0119; J3490; J2405

== ENCOUNTER 2017-11-25 03:40 | Emergency (ER) | payer SELFPAY ==
[2017-11-25] MEDS ORDERED: NORMAL SALINE 1000 ML 1,000 ML IV ONE (04:08)
[2017-11-25] MEDS ORDERED: DIPHENHYDRAMINE HCL 50 MG/ML VIAL IV ONE (04:09)
[2017-11-25] MEDS ORDERED: METOCLOPRAMIDE HCL INJ/PF 10 MG/2 ML SDV IV ONE (04:23)
--- NOTE | 2017-11-25 04:36 | ER Document Report ---
ED GI/ - General Chief Complaint: Anxiety Stated Complaint: ANXIETY Time Seen by Provider: 11/25/17 04:00 Mode of Arrival: Ambulatory Information source: Patient, Relative Notes: Patient is a 22-year-old female with a history of known anxiety disorder. She states that she woke up about an hour ago with vomiting chest pain discomfort back pain and shakiness all over. She also states it hurts to take a deep breath on her left rib area. She also mentions that she went to [facility] 4 days ago for same presentation she states they did not do an ultrasound and a urine and found she was approximately 2 weeks . They did a ultrasound transvaginally and could see a yolk sac and it was in the uterus in proper position but no heartbeat at that time. Patient also states this is her second and she miscarried the first time. Patient is hyperventilating and states that her hands and fingers are tingly her lips are not tingly and numb. Patient also states she has been vomiting since she woke up. She also tells me that [place] gave her something to relaxer and gave her some fluids and she got better and now she is getting worse again. She admits to smoking half pack a day. She denies any alcohol or narcotic use. TRAVEL OUTSIDE OF THE [place] IN LAST 30 DAYS: No - HPI Patient complains to provider of: , Vomiting. No: Urinary retention, Vaginal bleeding, Vaginal discharge, Vaginal pain Onset: Just prior to arrival Timing/Duration: Sudden Quality of pain: Achy Severity at maximum: Severe Severity in ED: Moderate Pain Level: 2 Context: Location: Chest pain, Low back. No: LUQ, LLQ, RUQ, RLQ, Pelvis, Vaginal, Vulvar , Rectal Adult Front & Back Diagram: 1 - Tender to palpation 2 - Tender to palpation intercostally and left axillary rib Vaginal bleeding (Compared to normal period): None Menstrual period history: Missed, : 2 Para: 0 Abortions: 1 OB ultrasound done: Yes vitamins taken: Yes Sexual history: Active Associated symptoms: Constipation, Hurts to breath, Vomiting. denies: Shortness of breath Exacerbated by: Denies Relieved by: Denies Similar symptoms previously: Yes Recently seen / treated by doctor: Yes - Related Data Allergies/Adverse Reactions: lorazepam [From Ativan] Allergy (Verified 01/04/17 12:12) Past Medical History - General Information source: Patient, Relative - Social History Smoking Status: Current Every Day Smoker Cigarette use (# per day): Yes Chew tobacco use (# tins/day): No Smoking Education Provided: Yes Frequency of alcohol use: Occasional Drug Abuse: None Lives with: Family Family History: None Patient has suicidal ideation: No Patient has homicidal ideation: No - Past Medical History Cardiac Medical History: Reports: None Pulmonary Medical History: Reports: None EENT Medical History: Reports: None Endocrine Medical History: Reports: None Renal/ Medical History: Reports: None. Denies: Hx Peritoneal Dialysis Malignancy Medical History: Reports: None GI Medical History: Reports: None Musculoskeletal Medical History: Reports None Skin Medical History: Reports None Psychiatric Medical History: Reports: Hx Anxiety, Hx Depression - anxiety - Immunizations Hx Diphtheria, Pertussis, Tetanus Vaccination: Yes Review of Systems - Review of Systems Constitutional: No symptoms reported EENT: No symptoms reported Cardiovascular: No symptoms reported Respiratory: No symptoms reported Gastrointestinal: Abdominal pain, Nausea Genitourinary: No symptoms reported Female Genitourinary: No symptoms reported Musculoskeletal: No symptoms reported Skin: No symptoms reported Hematologic/Lymphatic: No symptoms reported Neurological/Psychological: Anxiety Physical Exam - Vital signs Vitals: Temp Pulse Resp BP Pulse Ox 97.6 F 111 H 22 H 123/73 100 11/25/17 03:44 11/25/17 03:44 11/25/17 03:44 11/25/17 03:44 11/25/17 03:44 Interpretation: Tachycardic - Notes Notes: Patient is a 22-year-old female who appears anxious and hyperventilating while on exam. He also is actively dry heaving. She denies any current abdominal pain but still complains of having left sided rib pain with a deep breath and mid back pain. - General In distress: Mild - HEENT Head: Normocephalic, Atraumatic Eyes: Normal Conjunctiva: Normal Ears: Normal External canal: Normal Tympanic membrane: Normal Sinus: Normal Nasal: Normal Mouth/Lips: Normal Mucous membranes: Normal, Moist Pharynx: Normal Neck: Normal. No: Lymphadenopathy, Meningismus, Neck mass, Shotty nodes, Subcutaneous emphysema, Thyromegally - Respiratory Respiratory status: No respiratory distress Chest status: Nontender Breath sounds: Normal. No: Rales, Rhonchi, Stridor, Wheezing Chest palpation: Normal - Cardiovascular Rhythm: Tachycardia Heart sounds: Normal auscultation Murmur: No - Abdominal Inspection: Gravid female, Obese Distension: Distended Bowel sounds: Normal Tenderness: Tender, Other - Mild tenderness diffusely to percussion and palpation Organomegaly: No organomegaly - Back Back: Tender, Other - Examination of the back shows mild tenderness midthoracic down to the upper lumbar region. This is through palpation and movement. Patient has good straight leg raises bilaterally good DTRs in lower extremities bilaterally has some tenderness to palpation along the T12-L1 area to palpation. - Neurological Neuro grossly intact: Yes Cognition: Normal Orientation: AAOx4 Shirlene Coma Scale Eye Opening: Spontaneous [place] Coma Scale Verbal: Oriented Shirlene Coma Scale Motor: Obeys Commands Shirlene Coma Scale Total: 15 Speech: Normal - Psychological Associated symptoms: Anxious Course - Re-evaluation Re-evalutation: 11/25/17 07:13 Patient continued having nausea with vomiting. I have discussed with Dr. Velazco concerns for the possibility of a PE given patient smokes is then has had some left-sided chest discomfort with inhalation or deep breathing. We decided to run a d-dimer which turned out to be normal so therefore we do not have to for worry about PE at this time. I went back and reassess patient again her vomiting had calmed down after receiving the Phenergan IV and the 2 L of fluid. I gave her a fluid challenge after giving some Benadryl to her p.o. and patient is held down successfully per nursing. At this time feel patient main diagnosis is hyperemesis gravidarum and we will send her home on some Phenergan p.o. at this time. Also informed patient she can take Benadryl p.o. before she starts throwing up for nausea as well. I will give her the [employer] HELPER operations support professionals she currently is not seeing anyone. - Vital Signs Vital signs: Temp Pulse Resp BP Pulse Ox 97.6 F 111 H 22 H 123/73 100 11/25/17 03:44 09/12/18 03:44 11/25/17 03:44 11/25/17 03:44 11/25/17 03:44 - Laboratory Result Diagrams: 11/25/17 04:25 11/25/17 04:25 Laboratory results interpreted by me: 11/25/17 11/25/17 11/25/17 04:10 04:25 04:25 WBC 18.0 H Seg Neutrophils % 84.1 H Lymphocytes % 8.7 L Absolute Neutrophils 15.1 H BUN 6 L Calcium 10.4 H Total Protein 9.0 H Albumin 5.1 H Beta HCG, Quant 54572.00 H Urine Ketones 80 H Discharge - Discharge Clinical Impression: Hyperemesis gravidarum Condition: Stable Disposition: HOME, SELF-CARE Instructions: Anxiety ([facility]), Hyperemesis Gravidarum ([facility]) Additional Instructions: Home and rest. Continuously sipping fluids throughout the day. Medications self with the Benadryl prior to getting nauseous and vomiting starting. Also given you some Phenergan to go along with this. I am recommending to the OB/ CREATIVE ART THERAPIST that is operations support professionals today and that is Dr. Bridges.. Prescriptions: Promethazine HCl [Phenergan 25 mg Tablet] 1 tab PO Q6H PRN #15 tablet PRN Reason: Forms: Elevated Blood Pressure, Smoking Cessation Education Referrals: DELFINO BRIDGES MD [ACTIVE STAFF] - Follow up as needed
[2017-11-25 04:38] LABS: APPEARANCE,URINE CLEAR; BILIRUBIN,URINE NEGATIVE (NEGATIVE); COLOR,URINE YELLOW; GLUCOSE, URINE NEGATIVE (NEGATIVE); KETONES,URINE 80 mg/dL (NEGATIVE); LEUKOCYTE ESTERASE,URINE NEGATIVE (NEGATIVE); NITRITE,URINE NEGATIVE (NEGATIVE); PROTEIN,URINE NEGATIVE (NEGATIVE); URINE SPECIFIC GRAVITY 1.006; UROBILINOGEN,URINE NEGATIVE mg/dL (<2.0)
[2017-11-25 04:38] LABS: ABSOLUTE BASOPHILS # (AUTO) 0.2 10^3/uL (0.0-0.2); ABSOLUTE LYMPHOCYTES (AUTO) 1.6 10^3/uL (0.5-4.7); ABSOLUTE MONOCYTES (AUTO) 1.1 10^3/uL (0.1-1.4); ABSOLUTE NEUT (AUTO) 15.1 10^3/uL (1.7-8.2); BASOPHILS % (AUTO) 1.1 % (0-2); EOSINOPHILS % (AUTO) 0.2 % (0-6); HEMATOCRIT 41.8 % (36.0-47.0); HEMOGLOBIN 14.5 g/dL (12.0-15.5); LYMPHOCYTES % (AUTO) 8.7 % (13-45); MEAN CORPUSCULAR HEMOGLOBIN 31.7 pg (27.0-33.4); MEAN CORPUSCULAR HGB CONC 34.6 g/dL (32.0-36.0); MEAN CORPUSCULAR VOLUME 92 fl (80-97); MONOCYTES % (AUTO) 5.9 % (3-13); PLATELET COUNT 368 10^3/uL (150-450); RED BLOOD COUNT 4.57 10^6/uL (3.72-5.28); RED CELL DISTRIBUTION WIDTH 13.3 % (11.5-14.0); SEGMENTED NEUTROPHILS % (AUTO) 84.1 % (42-78); TOTAL CELLS COUNTED % (AUTO) 100 %
[2017-11-25 04:47] LABS: URINE AMPHETAMINES SCREEN NEGATIVE; URINE BARBITURATES SCREEN NEGATIVE; URINE BENZODIAZEPINES SCREEN NEGATIVE; URINE COCAINE SCREEN NEGATIVE; URINE MARIJUANA (THC) SCREEN UNCONFIRMED POSITIVE; URINE METHADONE SCREEN NEGATIVE; URINE PHENCYCLIDINE SCREEN NEGATIVE
[2017-11-25 04:55] LABS: ALANINE AMINOTRANSFERASE 10 U/L (9-52); ALBUMIN 5.1 g/dL (3.5-5.0); ALKALINE PHOSPHATASE 58 U/L (38-126); ANION GAP 14 (5-19); ASPARTATE AMINO TRANSFERASE 18 U/L (14-36); BILIRUBIN,DIRECT 0.3 mg/dL (0.0-0.4); BILIRUBIN,TOTAL 0.6 mg/dL (0.2-1.3); BLOOD UREA NITROGEN 6 mg/dL (7-20); CALCIUM 10.4 mg/dL (8.4-10.2); CARBON DIOXIDE 22 mmol/L (22-30); CHLORIDE 105 mmol/L (98-107); GLUCOSE 108 mg/dL (75-110); POTASSIUM 3.9 mmol/L (3.6-5.0); SODIUM 140.8 mmol/L (137-145)
[2017-11-25] MEDS ORDERED: PROMETHAZINE HCL INJ 25 MG/1 ML VIAL IV ONE (05:00)
[2017-11-25] MEDS ORDERED: DIPHENHYDRAMINE HCL 50 MG CAPSULE PO ONE (06:34)
[2017-11-25 07:31] VITALS: BP 118/68
--- NOTE | 2017-11-25 08:24 | EKG REPORT ---
SEVERITY:- NORMAL ECG - SINUS RHYTHM : Confirmed by: Ryan Manzo 25-Nov-2017 08:24:05
== END 2017-11-25 07:29 | disposition home or self-care (01) ==
LOC: ER 03:40
DX: O21.0 Mild hyperemesis gravidarum (principal); Z3A.01 Less than 8 weeks gestation of pregnancy; O99.331 Smoking (tobacco) complicating pregnancy, first trimester; F17.210 Nicotine dependence, cigarettes, uncomplicated
CPT/HCPCS: 93005; 99283; 96360; 96361; 36415; 84702; 83690; 85025; 80053; 81001; 80307; 85379; 93010; J2765; J2550; J7030

== ENCOUNTER → 2018-01-15 | Outpatient (CLI) | payer SELFPAY ==
--- NOTE | 2018-01-15 14:09 | RADIOLOGY REPORT (SQ) ---
EXAM DESCRIPTION: U/S [id number] TRNABD 1GES W/ODOP COMPLETED DATE/TIME: 01/15/2018 1:52 pm REASON FOR STUDY: ENCOUNTER FOR SUPRVSN OF NORMAL , FIRST TRIMESTER Z34.82 ENCOUNTER FOR S UPRVSN OF NORMAL , SECOND TRI COMPARISON: None. TECHNIQUE: Transabdominal static and realtime grayscale images acquired of the pelvis. Additional se lected spectral and color Doppler images recorded. All images stored on PACs. bHCG: Not applicable. CLINICAL DATES: Unknown LIMITATIONS: None. FINDINGS: FETUS: Single Living intrauterine . ULTRASOUND EGA: 13 weeks 3 days ULTRASOUND MITUL: 07/20/2018 EFW: Not applicable less than 20 weeks. CRL: 7.3 cm FHR: 165 beats per minute. SURVEY: No visualized anomalies. AMNIOTIC FLUID: Adequate amount. PLACENTA: Anterior, low lying. SUBCHORIONIC BLEED: No SIZE OF BLEED: Not applicable. UTERUS: No masses. No anomalies. CERVICAL LENGTH: 3.6 cm. Closed. RIGHT ADNEXA: Ovary not seen. No adnexal free fluid. No adnexal masses. LEFT ADNEXA: Ovary not seen. No adnexal free fluid. No adnexal masses. FREE FLUID: None. OTHER: No other significant finding. IMPRESSION: LIVING INTRAUTERINE . EGA 13 weeks 3 days. Low-lying placenta. Trimester of : First - 0 to 13 weeks. TECHNICAL DOCUMENTATION: JOB ID: [id number] [employer]- All Rights Reserved rev-07/31 Reading location - IP/workstation name: [email or web address]
== END ==
LOC: RAD 13:15
PROVIDERS: ATTEND Nurse Practitioner
DX: Z34.81 Encounter for supervision of other normal pregnancy, first trimester (principal)
CPT/HCPCS: 76801

== ENCOUNTER 2018-07-27 20:54 | Inpatient (IN) | payer MEDICAID ==
[2018-07-27] MEDS ORDERED: RINGERS SOLUTION,LACTATED 1,000 ML IV PRN (21:08)
[2018-07-27] MEDS ORDERED: RINGERS SOLUTION,LACTATED 300 ML IV ONE (21:08)
[2018-07-27] MEDS ORDERED: DINOPROSTONE 10 MG VAGINAL INSERT.SR PV PRN (21:08)
[2018-07-27] MEDS ORDERED: ACETAMINOPHEN 325 MG TABLET PO PRN (21:09)
[2018-07-27] MEDS ORDERED: MAG HYDROX/AL HYDROX/SIMETH SUSP 30 ML UDCUP PO PRN (21:09)
[2018-07-27 21:43] LABS: ABSOLUTE BASOPHILS # (AUTO) 0.1 10^3/uL (0.0-0.2); ABSOLUTE EOSINOPHILS # (AUTO) 0.2 10^3/uL (0.0-0.6); ABSOLUTE LYMPHOCYTES (AUTO) 2.4 10^3/uL (0.5-4.7); ABSOLUTE NEUT (AUTO) 10.6 10^3/uL (1.7-8.2); BASOPHILS % (AUTO) 0.5 % (0-2); EOSINOPHILS % (AUTO) 1.6 % (0-6); HEMATOCRIT 33.9 % (36.0-47.0); HEMOGLOBIN 11.5 g/dL (12.0-15.5); MEAN CORPUSCULAR HEMOGLOBIN 30.2 pg (27.0-33.4); MEAN CORPUSCULAR HGB CONC 33.9 g/dL (32.0-36.0); MEAN CORPUSCULAR VOLUME 89 fl (80-97); PLATELET COUNT 305 10^3/uL (150-450); SEGMENTED NEUTROPHILS % (AUTO) 73.9 % (42-78); TOTAL CELLS COUNTED % (AUTO) 100 %; WHITE BLOOD COUNT 14.4 10^3/uL (4.0-10.5)
[2018-07-27 21:46] LABS: APPEARANCE,URINE SLIGHTLY-CLOUDY; BILIRUBIN,URINE NEGATIVE (NEGATIVE); COLOR,URINE YELLOW; GLUCOSE, URINE NEGATIVE (NEGATIVE); KETONES,URINE NEGATIVE (NEGATIVE); LEUKOCYTE ESTERASE,URINE NEGATIVE (NEGATIVE); NITRITE,URINE NEGATIVE (NEGATIVE); PROTEIN,URINE NEGATIVE (NEGATIVE); URINE SPECIFIC GRAVITY 1.006; UROBILINOGEN,URINE NEGATIVE mg/dL (<2.0)
[2018-07-27] MEDS ORDERED: DINOPROSTONE 10 MG VAGINAL INSERT.SR ONE (21:46)
[2018-07-27 22:04] LABS: URINE AMPHETAMINES SCREEN NEGATIVE; URINE BARBITURATES SCREEN NEGATIVE; URINE BENZODIAZEPINES SCREEN NEGATIVE; URINE COCAINE SCREEN NEGATIVE; URINE MARIJUANA (THC) SCREEN NEGATIVE; URINE METHADONE SCREEN NEGATIVE; URINE PHENCYCLIDINE SCREEN NEGATIVE
[2018-07-27] MEDS ORDERED: OXYTOCIN 10 UNIT/ML VIAL ONE (22:07)
[2018-07-27] MEDS ORDERED: LIDOCAINE 1% INJ-PF (10 MG/ML) 30 ML SDV ONE (22:07)
[2018-07-27] MEDS ORDERED: MISOPROSTOL 0.2 MG TABLET ONE (22:07)
[2018-07-27] MEDS ORDERED: OXYTOCIN/NORMAL SALINE 20 UNIT/1,000 ML RTUINJ ONE (22:07)
--- NOTE | 2018-07-28 01:51 | Admission Physical ---
Datetime Report Generated by CPN: 07/28/2018 01:50 CURRENT ADMISSION Chief Complaint: Scheduled Induction of Labor Indication for Induction: Postterm Admit Impression : Postterm, Intrauterine ; No Active Labor; Induction of Labor Admit Plan: Admit to Unit; Initiate Labor Induction Protocol ALLERGIES Medication Allergies: Yes Medication Allergies: lorazepam (07/27/2018) Latex: No Latex Allergies OBSTETRICAL HISTORY EDC: 07/20/2018 00:00 : 2 Para: 0 Term: 0 : 0 SAB: 1 IAB: 0 Ectopic: 0 Livin Cesareans: 0 VBACs: 0 Multiple Births: 0 Gestational Diabetes: No Rh Sensitization: No Incompetent Cervix: No ALAN: No Infertility: No ART Treatment: No Uterine Anomaly: No IUGR: No Hx Previous C/S: No Macrosomia: No Hx Loss/Stillborn: No PIH: No Hx : No Placenta Previa/Abruption: No Depression/PP Depression: No PTL/PROM: No Post Hemorrhage: No Current Procedures: Ultrasound; NST Obstetrical History Comments: G-1 SAB G-2 current SEE RECORDS Alcohol: No Marijuana : No Cocaine: No Other Illicit Drugs: No Cigarettes: Current Everyday Smoker. [id number] Cigarette Frequency: < 5 per day Advised to Stop: Yes MEDICAL HISTORY Diabetes: No Blood Transfusion: No Pulmonary Disease (Asthma, TB): No Breast Disease: No Hypertension: No Therapeutic Recreation Specialist Surgery: No Heart Disease: No Hosp/Surgery: Yes Autoimmune Disorder: No Anesthetic Complications: No Kidney Disease: No Abnormal Pap Smear: No Neuro/Epilepsy: No Psychiatric Disorders: Yes Other Medical Diseases: No Hepatitis/Liver Disease: No Significant Family History: No Varicosities/Phlebitis: No Trauma/Violence : No Thyroid Dysfunction: No Medical History Comments: D_C 2011, anxiety INFECTIOUS HISTORY Gonorrhea: No Genital Herpes: No Chlamydia: No Tuberculosis: No Syphilis: No Hepatitis: No HIV/AIDS Exposure: No Rash or Viral Illness: No HPV: No PHYSICAL EXAM General: Normal HEENT: Normal Neurologic: Normal Thyroid: Normal Heart: Normal Lungs: Normal Breast: Normal Back: Normal Abdomen: Normal Genitourinary Exam: Normal Extremities: Normal DTRs: Normal Pelvic Type: Adequate Vital Signs: Reviewed; Within Normal Limits VAGINAL EXAM Dilatation: 1 Effacement: 75 Station: -2 MEMBRANES Pooling: Negative Membranes: Intact FETUS A EGA: 41.1 Monitoring: External US FHR- Baseline: 120 Variability: Moderate 6-25bpm Accelerations: 15X15 Decelerations: None FHR Category: Category I Estimated Weight (gm): 3400 Presentation: Vertex PLANS FOR LABOR AND DELIVERY Pain Management: Natural Feeding Preference: Breast Benefit of Breast Feed Discussed: Yes Circumcision: Yes INFORMED CONSENT Signature: with User ID: Golden
[2018-07-28] MEDS ORDERED: ZOLPIDEM TARTRATE 5 MG TABLET ONE (02:42)
[2018-07-28] MEDS: ZOLPIDEM TARTRATE 5 MG TABLET PO SCH ×2 (02:45→21:30)
[2018-07-28] MEDS ORDERED: PROMETHAZINE HCL INJ 25 MG/1 ML VIAL IV ONE (07:19)
[2018-07-28] MEDS ORDERED: NALBUPHINE HCL INJ 10 MG/1 ML AMPULE INJ ONE (07:19)
[2018-07-28] MEDS ORDERED: PROMETHAZINE HCL INJ 25 MG/1 ML VIAL ONE (07:51)
[2018-07-28] MEDS ORDERED: NALBUPHINE HCL INJ 10 MG/1 ML AMPULE ONE (07:52)
[2018-07-28] MEDS ORDERED: OXYTOCIN/NORMAL SALINE 20 UNIT/1,000 ML RTUINJ IV PRN ×2 (09:39→14:14)
[2018-07-28] MEDS ORDERED: EPHEDRINE SULFATE INJ 50 MG/1 ML AMPULE ONE (11:35)
[2018-07-28] MEDS ORDERED: BUPIVACAINE HCL 0.25 % INJ/PF (2.5 MG/1 ML) 30 ML VIAL ONE (11:36)
[2018-07-28] MEDS ORDERED: FENTANYL/BUPIVACAINE/NS/PF 300 MCG/150 ML RTUINJ EPI ONE (11:36)
[2018-07-28] MEDS ORDERED: ONDANSETRON HCL INJ/PF 4 MG/2 ML SDV ONE (13:06)
[2018-07-28] MEDS ORDERED: PROMETHAZINE HCL 25 MG SUPP.RECT PR PRN (14:14)
[2018-07-28] MEDS ORDERED: MEASLES,MUMPS&RUBELLA VACC/PF 0.5 ML VIAL SUBCUT PRN (14:14)
[2018-07-28] MEDS ORDERED: DIPHENHYDRAMINE HCL 25 MG CAPSULE PO PRN (14:14)
[2018-07-28] MEDS ORDERED: ACETAMINOPHEN WITH CODEINE #3 TABLET PO PRN (14:14)
[2018-07-28] MEDS ORDERED: DIPH/PERTUSS(ACELL)/TETANUS VAC/PF 0.5 ML SYR (>=10YO) IM PRN (14:14)
[2018-07-28] MEDS ORDERED: MAGNESIUM HYDROXIDE SUSP 30 ML UDCUP PO PRN (14:14)
[2018-07-28] MEDS ORDERED: PSEUDOEPHEDRINE HCL 30 MG TABLET PO PRN (14:14)
[2018-07-28] MEDS ORDERED: PROMETHAZINE HCL INJ 25 MG/1 ML VIAL IV PRN (14:14)
[2018-07-28] MEDS ORDERED: BENZOCAINE/MENTHOL AEROSOL SPRAY 56 ML TOP PRN (14:14)
[2018-07-28] MEDS ORDERED: ACETAMINOPHEN 650 MG SUPP.RECT PR PRN (14:14)
[2018-07-28] MEDS ORDERED: GLYCERIN/WITCH HAZEL LEAF 1 EACH MED..WIPE TP PRN (14:14)
[2018-07-28] MEDS ORDERED: PROMETHAZINE HCL 25 MG TABLET PO PRN (14:14)
[2018-07-28] MEDS ORDERED: NA PHOS,M-B/NA PHOS,DI-BA (ADULT) 133 ML ENEMA PR PRN (14:14)
[2018-07-28] MEDS ORDERED: DIBUCAINE 1% OINTMENT 56 GM TP PRN (14:14)
[2018-07-28] MEDS ORDERED: IBUPROFEN 800 MG TABLET ONE (15:37)
[2018-07-28] MEDS: FERROUS SULFATE 325 MG TABLET PO SCH (19:01)
[2018-07-28] MEDS: DOCUSATE SODIUM 100 MG CAPSULE PO SCH (19:02)
[2018-07-28] MEDS: IBUPROFEN 800 MG TABLET PO SCH ×2 (19:47→21:29)
[2018-07-28] MEDS: FAMOTIDINE 20 MG TABLET PO SCH (21:30)
[2018-07-29] MEDS: ACETAMINOPHEN WITH CODEINE #3 TABLET PO PRN ×2 (03:34→19:04)
[2018-07-29] MEDS: IBUPROFEN 800 MG TABLET PO SCH ×3 (05:15→22:18)
[2018-07-29 07:00] LABS: HEMATOCRIT 23.2 % (36.0-47.0); MEAN CORPUSCULAR HGB CONC 33.5 g/dL (32.0-36.0); MEAN CORPUSCULAR VOLUME 89 fl (80-97); PLATELET COUNT 247 10^3/uL (150-450); RED BLOOD COUNT 2.59 10^6/uL (3.72-5.28); WHITE BLOOD COUNT 17.1 10^3/uL (4.0-10.5)
[2018-07-29 07:08] LABS: HEMOGLOBIN 7.8 g/dL (12.0-15.5)
--- NOTE | 2018-07-29 09:23 | PDOC PROGRESS REPORT ---
Subjective-OB Progress Note for:: 07/29/18 Subjective: reports bleeding slowing, mild period cramps only, no other pain. denies SOB/KEMP/dizziness/heart palpitations/extreme fatigue. Physical Exam (OB) Vital Signs: Temp Pulse Resp BP Pulse Ox 98.1 F 102 H 15 109/59 L 99 07/29/18 08:06 07/29/18 08:06 07/29/18 08:06 07/29/18 08:06 07/29/18 08:06 Intake & Output 07/28/18 07/29/18 07/30/18 06:59 06:59 06:59 Weight 78.9 kg - Lochia Lochia Amount: Scant < 10 ml Lochia Color: Rubra/Red - Abdomen Description: Soft, Round Hernia Present: No Fundal Description: Firm, Midline Fundal Height: u/u - u/2 - Abdominal Distension: No distension Tenderness: Nontender - Extremities Lower extremities: Padilla's sign - neg Calf: Normal, Nontender Objective-Diagnostic Laboratory: 07/29/18 06:40 07/29/18 06:40 WBC 17.1 H RBC 2.59 L Hgb 7.8 L D Hct 23.2 L MCV 89 MCH 30.0 MCHC 33.5 RDW 14.0 Plt Count 247 Assessment and Plan(PN) - Assessment and Plan (1) Anemia Qualifiers: Other causes of anemia: other cause, not classified Is this a current diagnosis for this admission?: Yes (2) Obstetrical laceration, first degree Is this a current diagnosis for this admission?: Yes (3) Vaginal delivery Is this a current diagnosis for this admission?: Yes - Time Spent with Patient Time with patient: Less than 15 minutes Medications reviewed and adjusted accordingly: Yes - Disposition Anticipated Discharge: Home Within: within 24 hours - discussed drop in H&H with dr le. will get repeat CBC today
[2018-07-29] MEDS: FAMOTIDINE 20 MG TABLET PO SCH ×2 (09:57→22:19)
[2018-07-29] MEDS: DOCUSATE SODIUM 100 MG CAPSULE PO SCH ×2 (09:57→18:50)
[2018-07-29] MEDS: PRENATAL VITAMIN W DHA CAPSULE PO SCH (09:57)
[2018-07-29] MEDS: FERROUS SULFATE 325 MG TABLET PO SCH ×2 (09:57→18:50)
[2018-07-29] MEDS: SENNOSIDES/DOCUSATE 8.6-50 MG 1 EACH TABLET PO SCH (09:57)
[2018-07-29 11:07] LABS: ABSOLUTE BASOPHILS # (AUTO) 0.1 10^3/uL (0.0-0.2); ABSOLUTE EOSINOPHILS # (AUTO) 0.1 10^3/uL (0.0-0.6); ABSOLUTE LYMPHOCYTES (AUTO) 2.3 10^3/uL (0.5-4.7); ABSOLUTE MONOCYTES (AUTO) 1.2 10^3/uL (0.1-1.4); BASOPHILS % (AUTO) 0.4 % (0-2); EOSINOPHILS % (AUTO) 0.8 % (0-6); HEMATOCRIT 23.8 % (36.0-47.0); LYMPHOCYTES % (AUTO) 13.9 % (13-45); MEAN CORPUSCULAR HGB CONC 33.3 g/dL (32.0-36.0); MEAN CORPUSCULAR VOLUME 90 fl (80-97); MONOCYTES % (AUTO) 7.4 % (3-13); PLATELET COUNT 265 10^3/uL (150-450); RED BLOOD COUNT 2.65 10^6/uL (3.72-5.28); RED CELL DISTRIBUTION WIDTH 13.9 % (11.5-14.0); SEGMENTED NEUTROPHILS % (AUTO) 77.5 % (42-78); TOTAL CELLS COUNTED % (AUTO) 100 %; WHITE BLOOD COUNT 16.8 10^3/uL (4.0-10.5)
[2018-07-29 11:09] LABS: HEMOGLOBIN 7.9 g/dL (12.0-15.5)
--- NOTE | 2018-07-29 17:26 | PDOC PROGRESS REPORT ---
Subjective Progress Note for:: 07/29/18 Subjective:: Pt states that she feels good, until she stands up. She is a little dizzy. Patient denies shortness of breath and chest pain. She is bleeding lightly. She is not painful. Reason For Visit: Physical Exam - Physical Exam Vital Signs: Temp Pulse Resp BP Pulse Ox 97.4 F 110 H 17 114/62 97 07/29/18 15:40 07/29/18 15:40 07/29/18 15:40 07/29/18 15:40 07/29/18 15:40 Intake & Output 07/28/18 07/29/18 07/30/18 06:59 06:59 06:59 Weight 78.9 kg General appearance: PRESENT: no acute distress Respiratory exam: PRESENT: clear to auscultation rad Cardiovascular exam: PRESENT: RRR GI/Abdominal exam: PRESENT: normal bowel sounds, soft Extremities exam: ABSENT: calf tenderness, clubbing, full ROM, joint swelling, pedal edema, tenderness, +1 edema, +2 edema, other Result Laboratory Results: 07/29/18 10:58 07/29/18 07/29/18 06:40 10:58 WBC 17.1 H 16.8 H RBC 2.59 L 2.65 L Hgb 7.8 L D 7.9 L Hct 23.2 L 23.8 L MCV 89 90 MCH 30.0 30.0 MCHC 33.5 33.3 RDW 14.0 13.9 Plt Count 247 265 Seg Neutrophils % 77.5 Lymphocytes % 13.9 Monocytes % 7.4 Eosinophils % 0.8 Basophils % 0.4 Absolute Neutrophils 13.0 H Absolute Lymphocytes 2.3 Absolute Monocytes 1.2 Absolute Eosinophils 0.1 Absolute Basophils 0.1 Assessment & Plan - Diagnosis (1) anemia Is this a current diagnosis for this admission?: Yes (2) Vaginal delivery Is this a current diagnosis for this admission?: Yes - Time Time Spent with patient: Less than 15 minutes - Plan Summary Plan Summary: Patient's admission hemoglobin was 11.5 and it was 7.8. The hemoglobin was repeated, which was 7.9. Patient has no excessive pain. Her lochia is very light. Patient states that she is a little dizzy when she stands up. She appears pale. Therefore, I will give her some IV iron. Agreeable to this plan.
[2018-07-29] MEDS ORDERED: IRON SUCROSE COMPLEX INJ/PF 100 MG/5 ML SDV IV ONE (19:00)
[2018-07-29] MEDS: ZOLPIDEM TARTRATE 5 MG TABLET PO SCH (22:19)
[2018-07-30] MEDS: ACETAMINOPHEN WITH CODEINE #3 TABLET PO PRN (03:29)
[2018-07-30] MEDS: IBUPROFEN 800 MG TABLET PO SCH ×2 (06:12→13:20)
[2018-07-30 07:38] LABS: ABSOLUTE BASOPHILS # (AUTO) 0.1 10^3/uL (0.0-0.2); ABSOLUTE EOSINOPHILS # (AUTO) 0.2 10^3/uL (0.0-0.6); ABSOLUTE LYMPHOCYTES (AUTO) 2.3 10^3/uL (0.5-4.7); ABSOLUTE MONOCYTES (AUTO) 0.9 10^3/uL (0.1-1.4); ABSOLUTE NEUT (AUTO) 8.2 10^3/uL (1.7-8.2); BASOPHILS % (AUTO) 0.4 % (0-2); EOSINOPHILS % (AUTO) 1.7 % (0-6); HEMATOCRIT 24.3 % (36.0-47.0); LYMPHOCYTES % (AUTO) 19.9 % (13-45); MEAN CORPUSCULAR HEMOGLOBIN 29.4 pg (27.0-33.4); MEAN CORPUSCULAR HGB CONC 32.6 g/dL (32.0-36.0); MEAN CORPUSCULAR VOLUME 90 fl (80-97); PLATELET COUNT 274 10^3/uL (150-450); RED BLOOD COUNT 2.69 10^6/uL (3.72-5.28); TOTAL CELLS COUNTED % (AUTO) 100 %; WHITE BLOOD COUNT 11.8 10^3/uL (4.0-10.5)
[2018-07-30 08:01] LABS: HEMOGLOBIN 7.9 g/dL (12.0-15.5)
[2018-07-30] MEDS: DOCUSATE SODIUM 100 MG CAPSULE PO SCH (09:23)
[2018-07-30] MEDS: SENNOSIDES/DOCUSATE 8.6-50 MG 1 EACH TABLET PO SCH (09:23)
[2018-07-30] MEDS: FERROUS SULFATE 325 MG TABLET PO SCH (09:23)
[2018-07-30] MEDS: FAMOTIDINE 20 MG TABLET PO SCH (09:23)
[2018-07-30] MEDS: PRENATAL VITAMIN W DHA CAPSULE PO SCH (09:23)
--- NOTE | 2018-07-30 09:52 | PDOC DISCHARGE SUMMARY ---
Final Diagnosis Discharge Date: 07/30/18 - PP Day #2, doing well, ambulating w/out difficulty, no c/o SOB or dizziness. O+, Rubella Immune, - Final Diagnosis (1) Anemia Is this a current diagnosis for this admission?: Yes (2) Cannabis use disorder, mild, abuse Is this a current diagnosis for this admission?: Yes (3) Encounter for induction of labor Is this a current diagnosis for this admission?: Yes (4) Obstetrical laceration, first degree Is this a current diagnosis for this admission?: Yes (5) Post term at 41 weeks gestation Is this a current diagnosis for this admission?: Yes (6) anemia Is this a current diagnosis for this admission?: Yes (7) Vaginal delivery Is this a current diagnosis for this admission?: Yes Discharge Data - Discharge Medication Prescriptions: Ferrous Sulfate [Feosol 325 mg Tablet] 325 mg PO BID #60 tablet Ibuprofen [Motrin 800 mg Tablet] 800 mg PO Q8 #60 tablet Home Medications: 95/Iron Fum/Folic/Dha [ + Dha Combo Pack] 1 tab PO DAILY 07/27/18 Ferrous Sulfate [Feosol 325 mg Tablet] 325 mg PO BID #60 tablet 07/30/18 Ibuprofen [Motrin 800 mg Tablet] 800 mg PO Q8 #60 tablet 07/30/18 Reason(s) for Admission: Onset of Labor Intrapartum Procedure(s): Spontaneous Vaginal Delivery Complication(s): Laceration-Perineal, Hemorrhage-Uterine Atony Laceration-Degree: 1st - Diagnosis Test Laboratory: Temp Pulse Resp BP Pulse Ox 98.6 F 93 16 113/65 99 07/30/18 08:56 07/30/18 08:56 07/30/18 08:56 07/30/18 08:09 07/30/18 08:56 07/27/18 07/27/18 07/29/18 21:00 21:00 06:40 RBC 3.80 2.59 L Hgb 11.5 L 7.8 L D Hct 33.9 L 23.2 L Urine Opiates Screen NEGATIVE 07/29/18 07/30/18 10:58 06:25 RBC 2.65 L 2.69 L Hgb 7.9 L 7.9 L Hct 23.8 L 24.3 L Urine Opiates Screen - Discharge information/Instructions Discharge Activity: Activity As Tolerated, No Lifting Over 10 Pounds, Pelvic Rest, Slowly Increase Activity Discharge Diet: As Tolerated, Regular Disposition: HOME, SELF-CARE Follow up with: [facility] in: 4, Weeks
[2018-07-30 12:59] VITALS: BP 119/73
--- NOTE | 2018-08-05 08:15 | Delivery Summary ---
Del Sum A-C Datetime Report Generated by CPN: 08/05/2018 08:15 DELIVERY PERSONNEL DELIVERY PERSONNEL: [id number] Delivery Doctor:: Jackelyn Alas CNM Nurse Nematologist Certified:: Jackelyn Alas CNM Labor and Delivery Nurse:: April Castro RNsurgical aides teacher Nurse:: Erin Hale RNC Nursery Nurse:: Solitario Krishna RN Director Voice/MAILROOM CLERK: Yudi Ott, WHEEL AND PINION INSPECTOR Director Voice/MAILROOM CLERK: Radha Sanches, ST Additional Personnel: : Kayleen Flaquito WHEEL AND PINION INSPECTOR MATERNAL INFORMATION Delivery Anesthesia: Epidural Maternal Complications: None Provider Comments: Pt with urge to push and found to be c/c/2. Started pushing and after much coaching baby was delivered. Baby with vigorous respiratory effort and cry spontaneously at . Placed on maternal abdomen and cord allowed to stop pulsating then clamped x2 and cut by FOB, cord blood obtained (3vc noted). Placenta delivery spontaneously intact, vaginal and perineal inspection revealed lacerations as stated and repaired in the usual manner. Fundus firm but severel clots on and off and a trickle with massage. Clots out with vaginal sweep and bleeding stable. Mother and baby in room skin to skin and bonding at this time. LABOR SUMMARY EDC: 07/20/2018 00:00 No. Babies in Womb: 1 Attempted: No Labor Anesthesia: Epidural LABOR INFORMATION Reason for Induction: Postterm Onset of Labor: 07/28/2018 08:25 Complete Dilatation: 07/28/2018 13:27 Cervical Ripening Agents: Cervidil Oxytocin: Induction Group B Beta Strep: negative Steroids Given: None Reason Steroids Not Administered: Not Applicable MEMBRANES Membranes Rupture Method: Artificial Rupture of Membranes: 07/28/2018 08:25 Length of Rupture (hr): 5.30 Amniotic Fluid Color: Clear Amniotic Fluid Amount: Small Amniotic Fluid Odor: Normal STAGES OF LABOR Stage 1 hr: 5 Stage 1 min: 2 Stage 2 hr: 0 Stage 2 min: 16 Stage 3 hr: 0 Stage 3 min: 6 Total Time in Labor hr: 5 Total Time in Labor min: 24 VAGINAL DELIVERY Episiotomy: None Laceration #1: Vaginal Laceration Extension #1: First Degree Laceration #2: Perineal Laceration Extension #2: First Degree Laceration Repair: Yes Laceration Repair Note: MLL that was repaired in the usual fashion with 2-[address] hemostatis was achieved Sponge Count Correct: Vaginal Sweep Performed Sharps Count Correct: N/A CSECTION DELIVERY Primary Indication: N/A Secondary Indication: N/A CSection Incidence: N/A Labor: N/A Elective: N/A CSection Incision: N/A BABY A INFORMATION Delivery Date/Time: 07/28/2018 13:43 Method of Delivery: Vaginal Method of Delivery: Vaginal Born in Route : No : N/A Forceps: N/A Vacuum Extraction: N/A Shoulder Dystocia : No PRESENTATION/POSITION BABY A Presentation: Cephalic Cephalic Presentation: Vertex Vertex Position: Right Occipital Anterior Breech Presentation: N/A PLACENTA INFORMATION BABY A Placenta Delivery Time : 07/28/2018 13:49 Placenta Method of Delivery: Spontaneous Placenta Status: Delivered SCORES BABY A Heart Rate 1 min: >100 bpm Resp Effort 1 min: Good Cry Reflex Irritability 1 min: Cough or Sneeze or Pulls Away Muscle Tone 1 min: Active Motion Color 1 min: Blue/Pale Resuscitation Effort 1 min: Tactile Stimulation SCORE 1 MIN: 8 Heart Rate 5 min: >100 bpm Resp Effort 5 min: Good Cry Reflex Irritability 5 min: Cough or Sneeze or Pulls Away Muscle Tone 5 min: Active Motion Color 5 min: Body Bracey, Extremities Blue Resuscitation Effort 5 min: N/A SCORE 5 MIN: 9 Resuscitation Effort 10 min: N/A INFORMATION BABY A Gestational Age at Delivery: 41.1 Gestational Status: Late Term- 41- 41.6 Weeks Infant Outcome : Liveborn Infant Condition : Stable Sex: Male Sex: Male IDENTIFICATION BABY A Infant Verification Date/Time: 07/28/2018 13:54 ID Band Number: [id number] Mother's Name Verified: Yes RN Verifying : Erin Camp RNC Additional Verifying Personnel: Rajinder Castro RN WEIGHT/LENGTH BABY A Infant Birthweight (gm): 3880 Infant Weight (lb): 8 Weight (oz): 9 Infant Length (in): 21.00 Length (cm): 53.34 CORD INFORMATION BABY A No. Cord Vessels: 3 Nuchal Cord : N/A Cord Blood Taken: Yes-For Eval (Mom's Blood Type - or O+) Suction: None ASSESSMENT BABY A Complications: Multiple Variable Decels Physical Findings at Delivery: Caput Succedaneum Respirations: Appears Normal Skin to Skin: Yes Production Maintenance Technician/ALS Called : No Care By: Mihir Krishna RN Transferred To: Remains with Mother BABY B INFORMATION : N/A SIGNATURES Assignment: Morelia Starr MD Signature: with User ID: Curly : with User ID: [email or web address]
== END 2018-07-30 14:57 | disposition home or self-care (01) | DRG 806 ==
LOC: LR 20:54 → 2S 07-28 16:30
PROVIDERS: ADMIT Obstetrics & Gynecology; ATTEND Obstetrics & Gynecology
PROC: 3E033VJ Introduction of Other Hormone into Peripheral Vein, Percutaneous Approach (ICD-10-PCS; 2018-07-27)
PROC: 4A1HXCZ Monitoring of Products of Conception, Cardiac Rate, External Approach (ICD-10-PCS; 2018-07-27)
PROC: 10E0XZZ Delivery of Products of Conception, External Approach (ICD-10-PCS; principal; 2018-07-28)
PROC: 0HQ9XZZ Repair Perineum Skin, External Approach (ICD-10-PCS; 2018-07-28)
PROC: 10907ZC Drainage of Amniotic Fluid, Therapeutic from Products of Conception, Via Natural or Artificial Opening (ICD-10-PCS; 2018-07-28)
DX: O48.0 Post-term pregnancy (principal); O99.323 Drug use complicating pregnancy, third trimester; Z37.0 Single live birth; O72.1 Other immediate postpartum hemorrhage; D64.9 Anemia, unspecified; F12.90 Cannabis use, unspecified, uncomplicated; O70.0 First degree perineal laceration during delivery; O99.03 Anemia complicating the puerperium; O99.334 Smoking (tobacco) complicating childbirth; F17.210 Nicotine dependence, cigarettes, uncomplicated; Z88.8 Allergy status to other drugs, medicaments and biological substances; Z3A.41 41 weeks gestation of pregnancy
CPT/HCPCS: 36415; 80307; 81005; 85025; 85027; 86592; 86850; 86900; 86901; 94760; C1726; C1758; J1756; J2300; J2405; J2550; J2590; J3010; J3490

== ENCOUNTER 2019-10-27 09:47 | Emergency (ER) | payer MEDICAID ==
--- NOTE | 2019-10-27 10:14 | ER Document Report ---
ED Medical Screen (RME) - General Chief Complaint: Nausea/Vomiting Stated Complaint: NAUSEA,VOMITING,ABDOMINAL PAIN Time Seen by Provider: 10/27/19 10:11 Primary Care Provider: JUANITO FONSECA MD [Primary Care Provider] - Follow up as needed Mode of Arrival: Ambulatory Information source: Patient Notes: 24-year-old female presents to ED presents to ED for complaint 8-week gestation. She states she is having nausea and vomiting. She states she has prescriptions for Vistaril and Phenergan she took about things got sicker. She states she has had Zofran in the past and she would like that. She does smoke half pack a day does not drink or do any drugs. Last menstrual period was August 23. She states she did have an ultrasound about 5 weeks and it showed a gestational sac. She is alert oriented respirations regular nonlabored she is having pelvic cramping no vaginal bleeding. I have greeted and performed a rapid initial assessment of this patient. A comprehensive ED assessment and evaluation of the patient, analysis of test results and completion of medical decision making process will be conducted by an additional ED providers. TRAVEL OUTSIDE OF THE [place] IN LAST 30 DAYS: No - Related Data Allergies/Adverse Reactions: lorazepam [From Ativan] Allergy (Verified 07/27/18 21:03) Past Medical History - Social History Frequency of alcohol use: None Drug Abuse: Marijuana Renal/ Medical History: Denies: Hx Peritoneal Dialysis Psychiatric Medical History: Reports: Hx Anxiety, Hx Depression - anxiety - Immunizations Hx Diphtheria, Pertussis, Tetanus Vaccination: Yes Physical Exam - Vital signs Vitals: Temp Pulse Resp BP Pulse Ox 98.6 F 78 18 117/74 99 10/27/19 09:52 10/27/19 09:52 10/27/19 09:52 10/27/19 09:52 10/27/19 09:52 Course - Vital Signs Vital signs: Temp Pulse Resp BP Pulse Ox 98.6 F 78 18 117/74 99 10/27/19 09:52 10/27/19 09:52 10/27/19 09:52 10/27/19 09:52 10/27/19 09:52 Doctor's Discharge - Discharge Referrals: JUANITO FONSECA MD [Primary Care Provider] - Follow up as needed
[2019-10-27 10:53] LABS: APPEARANCE,URINE CLOUDY; BILIRUBIN,URINE NEGATIVE (NEGATIVE); COLOR,URINE YELLOW; GLUCOSE, URINE NEGATIVE (NEGATIVE); KETONES,URINE 80 mg/dL (NEGATIVE); LEUKOCYTE ESTERASE,URINE TRACE (NEGATIVE); NITRITE,URINE NEGATIVE (NEGATIVE); PROTEIN,URINE 30 mg/dL (NEGATIVE); URINE SPECIFIC GRAVITY 1.021
[2019-10-27 10:55] LABS: ABSOLUTE LYMPHOCYTES (AUTO) 2.3 10^3/uL (0.5-4.7); ABSOLUTE MONOCYTES (AUTO) 0.8 10^3/uL (0.1-1.4); ABSOLUTE NEUT (AUTO) 10.5 10^3/uL (1.7-8.2); BASOPHILS % (AUTO) 0.3 % (0-2); EOSINOPHILS % (AUTO) 0.2 % (0-6); HEMATOCRIT 42.4 % (36.0-47.0); HEMOGLOBIN 14.3 g/dL (12.0-15.5); LYMPHOCYTES % (AUTO) 16.8 % (13-45); MEAN CORPUSCULAR HEMOGLOBIN 30.3 pg (27.0-33.4); MEAN CORPUSCULAR HGB CONC 33.7 g/dL (32.0-36.0); MEAN CORPUSCULAR VOLUME 90 fl (80-97); MONOCYTES % (AUTO) 5.9 % (3-13); PLATELET COUNT 311 10^3/uL (150-450); RED CELL DISTRIBUTION WIDTH 15.2 % (11.5-14.0); SEGMENTED NEUTROPHILS % (AUTO) 76.8 % (42-78); TOTAL CELLS COUNTED % (AUTO) 100 %; WHITE BLOOD COUNT 13.7 10^3/uL (4.0-10.5)
[2019-10-27 11:11] LABS: ALBUMIN 4.8 g/dL (3.5-5.0); ALKALINE PHOSPHATASE 53 U/L (38-126); ANION GAP 10 (5-19); ASPARTATE AMINO TRANSFERASE 26 U/L (14-36); BILIRUBIN,DIRECT 0.2 mg/dL (0.0-0.4); BILIRUBIN,TOTAL 0.7 mg/dL (0.2-1.3); BLOOD UREA NITROGEN 7 mg/dL (7-20); CALCIUM 9.7 mg/dL (8.4-10.2); CARBON DIOXIDE 22 mmol/L (22-30); CHLORIDE 104 mmol/L (98-107); GLUCOSE 96 mg/dL (75-110); POTASSIUM 4.4 mmol/L (3.6-5.0); TOTAL PROTEIN 8.3 g/dL (6.3-8.2)
[2019-10-27] MEDS ORDERED: NORMAL SALINE 1000 ML 1,000 ML IV ONE ×2 (11:11→12:58)
[2019-10-27] MEDS ORDERED: PROMETHAZINE HCL INJ 25 MG/1 ML VIAL IV ONE (11:11)
--- NOTE | 2019-10-27 11:36 | ER Document Report ---
ED GI/ - General Chief Complaint: Nausea/Vomiting Stated Complaint: NAUSEA,VOMITING,ABDOMINAL PAIN Time Seen by Provider: 10/27/19 10:11 Primary Care Provider: JUANITO FONSECA MD [Primary Care Provider] - Follow up as needed Mode of Arrival: Ambulatory Notes: HPI: 24-year-old female -0-1-1 at 8 weeks by for supposedly an apparent outpatient ultrasound who presents with some lower abdominal discomfort and nausea and vomiting for around 1 week. No fevers, diarrhea, or dysuria. No vaginal bleeding. Patient states she did have a lot of nausea with previous pregnancies. ROS: See HPI All other review of systems reviewed and otherwise negative Reviewed vital signs and nursing note as charted by RN. PHYSICAL EXAM: CONSTITUTIONAL: Alert and oriented and responds appropriately to questions. Well-appearing; well-nourished HEAD: Normocephalic; atraumatic EYES: PERRL; sclerae non-icteric ENT: Normal nose; no rhinorrhea; moist mucous membranes NECK: Supple CARD: Regular rate and rhythm; no murmurs; symmetric distal pulses RESP: Normal chest excursion without splinting or tachypnea; breath sounds clear and equal bilaterally; no wheezes, no rhonchi, no rales ABD/GI: Normal bowel sounds; non-distended; soft, very minimally tender to the periumbilical region without any palpable masses, rebound or guarding BACK: The back appears normal and is non-tender to palpation EXT: Normal ROM in all joints; non-tender to palpation; no edema SKIN: No acute lesions noted NEURO: CN 2-12 intact; 5/5 bilateral upper and lower extremity strength with sensation intact to light touch PSYCH: The patient's mood and manner are appropriate. Grooming and personal hygiene are appropriate. TRAVEL OUTSIDE OF THE [place] IN LAST 30 DAYS: No - Related Data Allergies/Adverse Reactions: lorazepam [From Ativan] Allergy (Verified 07/27/18 21:03) Past Medical History - General Information source: Patient - Social History Smoking Status: Current Every Day Smoker Frequency of alcohol use: None Drug Abuse: Marijuana Family History: None Renal/ Medical History: Denies: Hx Peritoneal Dialysis Psychiatric Medical History: Reports: Hx Anxiety, Hx Depression - anxiety - Immunizations Hx Diphtheria, Pertussis, Tetanus Vaccination: Yes Physical Exam - Vital signs Vitals: Temp Pulse Resp BP Pulse Ox 98.6 F 78 18 117/74 99 10/27/19 09:52 10/27/19 09:52 10/27/19 09:52 10/27/19 09:52 10/27/19 09:52 Course - Re-evaluation Re-evalutation: 10/27/19 11:35 Given the history and physical examination we will obtain test, check for an infection of the urine, pain a transvaginal ultrasound to rule out ectopic or molar , and reassess. Patient's vital signs are stable. We will provide fluids and nausea medications. 10/27/19 14:24 Ultrasound and labs as recorded. 7-week 1 day gestation with a subchorionic hemorrhage. Patient is currently pain-free. Vital signs are stable. 2 L of fluid have been provided. No vomiting here. Urine analysis shows white blood cells in clumps present. Rocephin has been provided. I will discharge the patient home on Macrobid and antinausea medications. Strict return precautions have been explained and understood. - Vital Signs Vital signs: Temp Pulse Resp BP Pulse Ox 98.6 F 78 18 117/74 99 10/27/19 09:52 10/27/19 09:52 10/27/19 09:52 10/27/19 09:52 10/27/19 09:52 - Laboratory Result Diagrams: 10/27/19 10:38 10/27/19 10:38 Laboratory results interpreted by me: 10/27/19 10/27/19 10/27/19 10:27 10:38 10:38 WBC 13.7 H RDW 15.2 H Absolute Neuts (auto) 10.5 H Sodium 135.8 L Creatinine 0.46 L Total Protein 8.3 H Beta HCG, Quant 89314.00 H Urine Protein 30 H Urine Ketones 80 H Urine Urobilinogen 2.0 H Ur Leukocyte Esterase TRACE H Urine Ascorbic Acid 20 H Discharge - Discharge Clinical Impression: and not yet delivered in first trimester, Pelvic pain, Hyperemesis gravidarum Urinary tract infection Qualifiers: Urinary tract infection type: acute cystitis Hematuria presence: without hematuria Qualified Code(s): N30.00 - Acute cystitis without hematuria Condition: Fair Disposition: HOME, SELF-CARE Additional Instructions: Come back immediately for any increased pain, bleeding, fever, persistent vomiting, lightheadedness or dizziness, or any other acute problems. Please follow-up with your primary care physician as we have discussed. You are 7 w eeks and 1 day here today. Please make sure that you are aware of that date and noted in your calendar. Please take the antibiotics as prescribed and follow-up with a urine culture. Prescriptions: Nitrofurantoin Monohyd/M-Cryst [Macrobid 100 mg Capsule] 100 mg PO BID #20 cap Promethazine HCl [Phenergan 25 mg Tablet] 25 mg PO Q8H #12 tablet Referrals: JUANITO FONSECA MD [Primary Care Provider] - Follow up as needed
--- NOTE | 2019-10-27 14:21 | RADIOLOGY REPORT (SQ) ---
EXAM DESCRIPTION: U/S OB TRANSVAG W/DOPPLER IMAGES COMPLETED DATE/TIME: 10/27/2019 1:48 pm REASON FOR STUDY: 14; preg with abdominal pain COMPARISON: None. TECHNIQUE: Transvaginal static and realtime grayscale images acquired of the pelvis. Additional walter cted spectral and color Doppler images recorded. All images stored on PACs. [id number] CLINICAL DATES: 9 week 1 day. LIMITATIONS: None. FINDINGS: FETUS: Single Living intrauterine . ULTRASOUND EGA: 7 week 1 day. ULTRASOUND MITUL: 06/13/2020. EFW: Not applicable less than 20 weeks. CRL: 1.02 cm. FHR: 141 beats per minute. SURVEY: No visualized anomalies. AMNIOTIC FLUID: Adequate amount. PLACENTA: Not yet developed due to early gestation. SUBCHORIONIC BLEED: Yes. SIZE OF BLEED: 0.5 x 0.6 x 1.2 cm. UTERUS: No masses. No anomalies. CERVICAL LENGTH: 3.4 cm. Closed. RIGHT ADNEXA: Ovary not identified due to poor acoustical window. No adnexal free fluid. No adnexal masses. LEFT ADNEXA: Normal ovary with normal vascular flow. No adnexal free fluid. 1.8 cm cyst. FREE FLUID: None. OTHER: No other significant finding. IMPRESSION: LIVING INTRAUTERINE . EGA 7 WEEK 1 DAY. SUBCHORIONIC BLEED. Trimester of : First trimester - 0 to 13 weeks. TECHNICAL DOCUMENTATION: JOB ID: [id number] [employer]- All Rights Reserved rev Reading location - IP/workstation name: [email or web address]
[2019-10-27] MEDS ORDERED: CEFTRIAXONE 1 GM/D5W RTU 1 GM/50 ML RTUPB IV ONE (14:24)
[2019-10-27 16:48] VITALS: BP 118/79
== END 2019-10-27 16:48 | disposition home or self-care (01) ==
LOC: ER 09:47
DX: O21.0 Mild hyperemesis gravidarum (principal); O23.11 Infections of bladder in pregnancy, first trimester; O20.8 Other hemorrhage in early pregnancy; O26.891 Other specified pregnancy related conditions, first trimester; R10.2 Pelvic and perineal pain; O99.331 Smoking (tobacco) complicating pregnancy, first trimester; F17.200 Nicotine dependence, unspecified, uncomplicated; O99.321 Drug use complicating pregnancy, first trimester; F12.10 Cannabis abuse, uncomplicated; Z3A.01 Less than 8 weeks gestation of pregnancy; Z88.8 Allergy status to other drugs, medicaments and biological substances
CPT/HCPCS: 99285; 96361; 96375; 96365; 36415; 87086; 84702; 85025; 80053; 81001; 76817; 93976; J2550; J7030; J0696